=== PATIENT | female | born 1970 | race Caucasian/White ===

== ENCOUNTER 2021-05-02 13:02 | Inpatient (IN) | payer OTHER, SELFPAY ==
[2021-05-02] MEDS ORDERED: Dexamethasone 10 MG/ML VIAL ONE (13:35)
[2021-05-02 13:43] LABS: Hemoglobin 13.9 g/dL (12.0-15.5); Mean Corpuscular HGB CONC 33.5 g/dL (32.0-36.0); Mean Corpuscular Hemoglobin 29.2 pg (27.0-33.0); Mean Corpuscular Volume 87.2 fl (81.6-98.3); Mean Platelet Volume 11.6 fl (7.4-10.4); Platelet Count 173 10x3/uL (150-450); RBC Distribution Width 14.2 % (11.5-14.5); Red Blood Cell (RBC) Count 4.76 10x6/uL (3.90-5.03)
[2021-05-02 13:59] LABS: ALT (SGPT) 71 U/L (8-55); AST (SGOT) 180 U/L (5-34); Albumin 3.3 g/dL (3.5-5.0); Alkaline Phosphatase 77 U/L (40-110); Anion Gap 27 mmol/L (10-20); BUN (Urea Nitrogen) 59 mg/dL (7.0-18.7); Bilirubin, Total 0.5 mg/dL (0.2-1.2); Calc. Creatinine Clearance 0 mL/min (70-130); Calcium 8.2 mg/dL (7.8-10.44); Carbon Dioxide 19 mmol/L (22-29); Chloride 89 mmol/L (98-107); Globulin 3.8 g/dL (2.4-3.5); Glucose 149 mg/dL (70-105); Potassium 3.7 mmol/L (3.5-5.1); Protein, Total 7.1 g/dL (6.0-8.3); Sodium 131 mmol/L (136-145)
[2021-05-02 14:01] LABS: MDiff Complete? YES
[2021-05-02 14:07] LABS: Monocytes 5 % (0-10); Neutrophil 85 % (42-75); Reactive Lymphocytes 3 % (0-10)
[2021-05-02 14:08] LABS: Lymphocytes 7 % (21-51)
[2021-05-02 14:09] LABS: Platelet Morphology Comment Appears Adequate
[2021-05-02 14:12] LABS: RBC Morphology Normal
[2021-05-02 14:25] LABS: Actual Bicarbonate (HCO3a) 20.4 mEq/L (22-28); Base Excess (BEa) -3.4 mEq/L (-2.0 to +3.0); CO2 Tension 33.2 mmHg (35.0-45.0); Calcium, Ionized (arterial) 0.99 mmol/L (1.12-1.30); Carboxyhemoglobin (COHb) 0.7 gm% (0.0-3.0); O2 Tension (PaO2), arterial 113.8 mmHg (80.0-100.0); Potassium - ABG Lab 3.4 mmol/L (3.70-5.30); Puncture Site RRA; pH, Arterial 7.41 (7.35-7.45)
[2021-05-02 14:54] LABS: CKMB 9.9 ng/mL (0-6.6)
[2021-05-02] MEDS ORDERED: Acetaminophen 325 MG TAB PO PRN (14:54)
[2021-05-02] MEDS ORDERED: Guaifenesin DM 100-10/5 ML UDCUP PO PRN (14:54)
[2021-05-02] MEDS ORDERED: Ondansetron PF 4 MG/2 ML Vial IVP PRN (14:54)
[2021-05-02 16:46] LABS: Lactic Acid 1.5 mmol/L (0.5-2.2)
[2021-05-02] MEDS ORDERED: Ventilator Sedation Protocol 1 EACH FS PRN (16:52)
[2021-05-02] MEDS ORDERED: Dexamethasone 20 MG/5 ML VIAL SLOW IVP SCH (17:00)
[2021-05-02] MEDS ORDERED: Propofol BOLUS 1,000 MG/100 ML VIAL IV PRN (17:00)
[2021-05-02] MEDS ORDERED: Propofol 1,000 MG/100 ML VIAL IV PRN (17:00)
[2021-05-02] MEDS ORDERED: Fentanyl BOLUS 250 ML IVPB PRN (17:00)
[2021-05-02] MEDS ORDERED: Sodium Bicarbonate 75 MEQ in Sodium Chloride 0.45% 1,000 ML IV SCH (17:45)
[2021-05-02] MEDS ORDERED: guaiFENesin/Codeine Phosphate 100 mg/10 mg 5 ml UD Cup PO PRN (17:54)
[2021-05-02 17:55] LABS: Actual Bicarbonate (HCO3a) 20.3 mEq/L (22-28); Base Excess (BEa) -4.2 mEq/L (-2.0 to +3.0); CO2 Tension 35.9 mmHg (35.0-45.0); Calcium, Ionized (arterial) 0.99 mmol/L (1.12-1.30); Carboxyhemoglobin (COHb) 0.4 gm% (0.0-3.0); O2 Tension (PaO2), arterial 87.2 mmHg (80.0-100.0); Potassium - ABG Lab 3.4 mmol/L (3.70-5.30); Puncture Site RRA; pH, Arterial 7.37 (7.35-7.45)
[2021-05-02 17:59] LABS: ALV-art Gradient 580.925 mmHg (0-20)
[2021-05-02 18:37] LABS: Hemoglobin 13.3 g/dL (12.0-15.5); Platelet Count 144 10x3/uL (150-450)
[2021-05-02] MEDS: Sodium Bicarbonate 75 MEQ, Admixture Fee 1 EACH in Sodium Chloride 0.45% 1,000 ML IV SCH (18:49)
[2021-05-02] MEDS: Vecuronium Bromide 50 MG in Sodium Chloride 0.9% 250 ML 250 ML IV SCH ×2 (19:29→22:47)
[2021-05-02 19:54] LABS: Creatinine, Urine 266.05 mg/dL (47-110)
[2021-05-02] MEDS ORDERED: Sodium Bicarbonate 75 MEQ, Admixture Fee 1 EACH in Sodium Chloride 0.45% 1,000 ML IV SCH (20:15)
[2021-05-02 20:51] LABS: HBCM Index 0.15 S/CO (0-0.79); HBSAg Index 0.18 S/CO (0-0.99); Hep A IgM AB Non-Reactive (NonReactive); Hep A IgM S/CO 0.56 S/CO (0-0.79); Hep B Surf Ag Non-Reactive S/CO (NonReactive); Hep C IgG Ab Non-Reactive (NonReactive); Hep C Index 0.12 S/CO (0-0.79); Hepatitis B Core IgM Abs Non-Reactive (NonReactive)
[2021-05-02] MEDS ORDERED: Norepinephrine 8 MG/0.9% NS 250 ML ONE (21:37)
[2021-05-02] MEDS ORDERED: Norepinephrine 8 MG/0.9% NS 250 ML IVPB SCH (22:00)
[2021-05-02] MEDS: Cefepime 1 GM in Sodium Chloride 0.9% 100 ML IVPB SCH (22:45)
[2021-05-02] MEDS: Famotidine 20 MG TAB PO SCH (22:48)
[2021-05-02 23:33] LABS: Hemoglobin 12.7 g/dL (12.0-15.5); Mean Corpuscular HGB CONC 34.1 g/dL (32.0-36.0); Mean Corpuscular Hemoglobin 29.1 pg (27.0-33.0); Mean Corpuscular Volume 85.3 fl (81.6-98.3); Mean Platelet Volume 11.5 fl (7.4-10.4); Platelet Count 134 10x3/uL (150-450); RBC Distribution Width 14.2 % (11.5-14.5); Red Blood Cell (RBC) Count 4.36 10x6/uL (3.90-5.03); White Blood Cell (WBC) Count 6.9 10x3/uL (3.5-10.5)
[2021-05-02] MEDS: Heparin 25,000 units/D5W 500 ML IVPB SCH (23:47)
[2021-05-03] MEDS: Heparin 10,000 UNITS/ 10 ML VIAL SLOW IVP SCH ×2 (00:02→22:37)
[2021-05-03 01:04] LABS: Band 8 % (5-11); Lymphocytes 9 % (21-51); Monocytes 4 % (0-10); Myelocyte 2 % (0-0); Reactive Lymphocytes 2 % (0-10)
[2021-05-03 01:05] LABS: Anisocytosis SLIGHT = 6-15 cells (100X) (0-5/hpf); Microcytosis SLIGHT = 6-15 cells (100X) (0-5/hpf); Neutrophil 75 % (42-75)
[2021-05-03 01:06] LABS: Large Platelets MODERATE; Platelet Clumps SLIGHT; Platelet Morphology Comment Appears Adequate
[2021-05-03 01:07] LABS: MDiff Complete? YES
[2021-05-03 04:57] LABS: Hemoglobin 12.5 g/dL (12.0-15.5); Mean Corpuscular Hemoglobin 29.3 pg (27.0-33.0); Mean Corpuscular Volume 86.4 fl (81.6-98.3); Platelet Count 138 10x3/uL (150-450); RBC Distribution Width 14.1 % (11.5-14.5); Red Blood Cell (RBC) Count 4.26 10x6/uL (3.90-5.03); White Blood Cell (WBC) Count 7.5 10x3/uL (3.5-10.5)
[2021-05-03 05:01] LABS: Anion Gap 26 mmol/L (10-20); BUN (Urea Nitrogen) 72 mg/dL (7.0-18.7); Calc. Creatinine Clearance 19 mL/min (70-130); Calcium 7.6 mg/dL (7.8-10.44); Carbon Dioxide 18 mmol/L (22-29); Chloride 92 mmol/L (98-107); Glucose 167 mg/dL (70-105); Potassium 3.1 mmol/L (3.5-5.1); Sodium 133 mmol/L (136-145)
[2021-05-03 05:14] LABS: CK (CPK) 4441 U/L (29-168)
[2021-05-03] MEDS ORDERED: DOPamine 400 MG/D5W 250 ML 250 ML IVPB SCH (05:15)
[2021-05-03] MEDS ORDERED: Furosemide 100 MG/10 ML VIAL SLOW IVP SCH (05:15)
[2021-05-03] MEDS: Sodium Bicarbonate 75 MEQ, Admixture Fee 1 EACH in Sodium Chloride 0.45% 1,000 ML IV SCH (06:04)
[2021-05-03] MEDS: Lactated Ringer's 1,000 ML IV SCH ×4 (06:05→20:54)
[2021-05-03 06:32] LABS: ALV-art Gradient 363.375 mmHg (0-20); Base Excess (BEa) -3.9 mEq/L (-2.0 to +3.0); CO2 Tension 32.9 mmHg (35.0-45.0); Calcium, Ionized (arterial) 0.96 mmol/L (1.12-1.30); Carboxyhemoglobin (COHb) 0.3 gm% (0.0-3.0); Hemoglobin (Hb) 13.3 g/dL (12.0-16.0); O2 Tension (PaO2), arterial 308.5 mmHg (80.0-100.0); Potassium - ABG Lab 3.2 mmol/L (3.70-5.30); Puncture Site LRA
[2021-05-03 06:42] LABS: Magnesium 2.1 mg/dL (1.6-2.6); Phosphorus 7.4 mg/dL (2.3-4.7)
[2021-05-03 07:04] LABS: PTT Greater than 139.0 sec (22.0-33.0)
[2021-05-03 07:54] LABS: Band 15 % (5-11); Lymphocytes 4 % (21-51); Monocytes 5 % (0-10); Myelocyte 1 % (0-0)
[2021-05-03 07:55] LABS: Neutrophil 70 % (42-75); Reactive Lymphocytes 5 % (0-10)
[2021-05-03 07:56] LABS: Anisocytosis SLIGHT = 6-15 cells (100X) (0-5/hpf); Microcytosis SLIGHT = 6-15 cells (100X) (0-5/hpf)
[2021-05-03 07:57] LABS: Platelet Morphology Comment Appears Adequate
[2021-05-03 07:58] LABS: Burr Cells SLIGHT = 2-5 cells (100X) (0-1/hpf); Crenated RBC SLIGHT = 1-5 cells (100X) (None Seen); Giant Platelets SLIGHT; Large Platelets SLIGHT
[2021-05-03 07:59] LABS: Platelet Clumps SLIGHT
[2021-05-03 08:01] LABS: MDiff Complete? YES
[2021-05-03] MEDS: Zinc Sulfate 220 MG CAP PO SCH ×2 (08:43→13:04)
[2021-05-03] MEDS: Aspirin 81 mg Enteric Coated Tablet PO SCH ×2 (08:43→13:04)
[2021-05-03] MEDS: Cefepime 1 GM in Sodium Chloride 0.9% 100 ML IVPB SCH ×2 (08:43→20:55)
[2021-05-03] MEDS: Dexamethasone 20 MG/5 ML VIAL SLOW IVP SCH (08:43)
[2021-05-03] MEDS ORDERED: Enoxaparin Sodium 30 MG/0.3 ML SYRINGE SC SCH (09:00)
[2021-05-03] MEDS: fentaNYL Citrate-0.9 % NaCl/PF 100 ML IVPB SCH (09:10)
[2021-05-03 09:13] LABS: Actual Bicarbonate (HCO3a) 18.5 mEq/L (22-28); Base Excess (BEa) -5.5 mEq/L (-2.0 to +3.0); CO2 Tension 31.9 mmHg (35.0-45.0); Carboxyhemoglobin (COHb) 0.3 gm% (0.0-3.0); O2 Tension (PaO2), arterial 141.3 mmHg (80.0-100.0); Potassium - ABG Lab 3.3 mmol/L (3.70-5.30); Puncture Site RBA; pH, Arterial 7.38 (7.35-7.45)
[2021-05-03 09:18] LABS: ALV-art Gradient 246.625 mmHg (0-20)
[2021-05-03 10:19] LABS: Anion Gap 24 mmol/L (10-20); BUN (Urea Nitrogen) 76 mg/dL (7.0-18.7); Calc. Creatinine Clearance 19 mL/min (70-130); Calcium 7.4 mg/dL (7.8-10.44); Carbon Dioxide 18 mmol/L (22-29); Chloride 93 mmol/L (98-107); Glucose 127 mg/dL (70-105); Potassium 3.3 mmol/L (3.5-5.1); Sodium 132 mmol/L (136-145)
[2021-05-03 10:38] LABS: PTT Greater than 139.0 sec (22.0-33.0)
[2021-05-03] MEDS: Vecuronium Bromide 50 MG in Sodium Chloride 0.9% 250 ML 250 ML IV SCH (14:53)
[2021-05-03 16:37] LABS: Actual Bicarbonate (HCO3a) 19.7 mEq/L (22-28); Base Excess (BEa) -5.6 mEq/L (-2.0 to +3.0); CO2 Tension 37.9 mmHg (35.0-45.0); Calcium, Ionized (arterial) 0.95 mmol/L (1.12-1.30); Carboxyhemoglobin (COHb) 0.3 gm% (0.0-3.0); Hemoglobin (Hb) 12.8 g/dL (12.0-16.0); O2 Tension (PaO2), arterial 99.1 mmHg (80.0-100.0); Potassium - ABG Lab 3.8 mmol/L (3.70-5.30); Puncture Site Arterial Line; pH, Arterial 7.33 (7.35-7.45)
[2021-05-03 16:39] LABS: ALV-art Gradient 281.325 mmHg (0-20)
[2021-05-03] MEDS: Famotidine 20 MG TAB PO SCH (20:56)
[2021-05-03] MEDS: Heparin 25,000 units/D5W 500 ML IVPB SCH (20:58)
[2021-05-04] MEDS: Lactated Ringer's 1,000 ML IV SCH (02:12)
[2021-05-04 04:30] LABS: #Monocytes 0.8 10x3/uL (0.0-1.1); #Neutrophils 13.1 10x3/uL (1.5-8.4); %Basophils 0.3 % (0.0-2.0); %Lymphocytes 5.8 % (18.0-47.0); %Monocytes 5.2 % (0.0-10.0); %Neutrophils 84.6 % (40.0-75.0); Hemoglobin 11.6 g/dL (12.0-15.5); Mean Corpuscular HGB CONC 33.4 g/dL (32.0-36.0); Mean Corpuscular Hemoglobin 29.4 pg (27.0-33.0); Mean Corpuscular Volume 88.1 fl (81.6-98.3); Mean Platelet Volume 11.7 fl (7.4-10.4); Platelet Count 186 10x3/uL (150-450); RBC Distribution Width 14.6 % (11.5-14.5); Red Blood Cell (RBC) Count 3.94 10x6/uL (3.90-5.03); White Blood Cell (WBC) Count 15.4 10x3/uL (3.5-10.5)
[2021-05-04 05:01] LABS: ALT (SGPT) 248 U/L (8-55); AST (SGOT) 226 U/L (5-34); Albumin 2.6 g/dL (3.5-5.0); Alkaline Phosphatase 60 U/L (40-110); Anion Gap 25 mmol/L (10-20); BUN (Urea Nitrogen) 85 mg/dL (7.0-18.7); Bilirubin, Total 0.2 mg/dL (0.2-1.2); Calc. Creatinine Clearance 17 mL/min (70-130); Calcium 6.9 mg/dL (7.8-10.44); Carbon Dioxide 16 mmol/L (22-29); Chloride 96 mmol/L (98-107); Globulin 3.3 g/dL (2.4-3.5); Glucose 147 mg/dL (70-105); Phosphorus 9.6 mg/dL (2.3-4.7); Potassium 3.4 mmol/L (3.5-5.1); Protein, Total 5.9 g/dL (6.0-8.3); Sodium 134 mmol/L (136-145)
[2021-05-04] MEDS: Vecuronium Bromide 50 MG in Sodium Chloride 0.9% 250 ML 250 ML IV SCH ×2 (05:29→15:32)
[2021-05-04] MEDS ORDERED: Furosemide 100 MG/10 ML VIAL SLOW IVP SCH (06:30)
[2021-05-04 07:06] LABS: PTT Greater than 139.0 sec (22.0-33.0)
[2021-05-04 07:38] LABS: Base Excess (BEa) -9.3 mEq/L (-2.0 to +3.0); CO2 Tension 38.3 mmHg (35.0-45.0); Calcium, Ionized (arterial) 0.91 mmol/L (1.12-1.30); Carboxyhemoglobin (COHb) 0.3 gm% (0.0-3.0); Hemoglobin (Hb) 12.5 g/dL (12.0-16.0); O2 Tension (PaO2), arterial 167.4 mmHg (80.0-100.0); Potassium - ABG Lab 3.5 mmol/L (3.70-5.30); Puncture Site Arterial Line; pH, Arterial 7.27 (7.35-7.45)
[2021-05-04 07:42] LABS: ALV-art Gradient 212.525 mmHg (0-20)
[2021-05-04] MEDS: fentaNYL Citrate-0.9 % NaCl/PF 100 ML IVPB SCH (08:29)
[2021-05-04] MEDS: Dexamethasone 20 MG/5 ML VIAL SLOW IVP SCH (08:32)
[2021-05-04] MEDS: Zinc Sulfate 220 MG CAP PO SCH (08:33)
[2021-05-04] MEDS: Aspirin 81 mg Enteric Coated Tablet PO SCH (08:33)
[2021-05-04] MEDS: Cefepime 1 GM in Sodium Chloride 0.9% 100 ML IVPB SCH ×2 (08:33→21:22)
[2021-05-04] MEDS: Dextrose 5%-Lactated Ringers 1,000 ML IV SCH ×2 (10:53→23:49)
[2021-05-04 11:25] LABS: PTT 88.1 sec (22.0-33.0)
[2021-05-04] MEDS: Heparin 25,000 units/D5W 500 ML IVPB SCH (13:41)
[2021-05-04 17:30] LABS: Hemoglobin 10.1 g/dL (12.0-15.5); Platelet Count 186 10x3/uL (150-450)
[2021-05-04 17:58] LABS: PTT 88.7 sec (22.0-33.0)
[2021-05-04 18:22] LABS: HBSAB Concentration Less than 8.00 mIU/mL; Hep B Surf AB Non-Reactive (NonReactive)
[2021-05-04] MEDS: Famotidine 20 MG TAB PO SCH (21:23)
[2021-05-04 21:48] LABS: Actual Bicarbonate (HCO3a) 19.2 mEq/L (22-28); Base Excess (BEa) -6.6 mEq/L (-2.0 to +3.0); CO2 Tension 39.2 mmHg (35.0-45.0); Calcium, Ionized (arterial) 0.98 mmol/L (1.12-1.30); Carboxyhemoglobin (COHb) 0.3 gm% (0.0-3.0); Hemoglobin (Hb) 11.1 g/dL (12.0-16.0); O2 Tension (PaO2), arterial 64.7 mmHg (80.0-100.0); Potassium - ABG Lab 3.3 mmol/L (3.70-5.30); Puncture Site LRA; pH, Arterial 7.31 (7.35-7.45)
[2021-05-05 01:53] LABS: PTT 85.2 sec (22.0-33.0)
[2021-05-05 03:06] LABS: Actual Bicarbonate (HCO3a) 19.6 mEq/L (22-28); CO2 Tension 39.2 mmHg (35.0-45.0); O2 Tension (PaO2), arterial 80.4 mmHg (80.0-100.0); pH, Arterial 7.32 (7.35-7.45)
[2021-05-05 03:07] LABS: Calcium, Ionized (arterial) 0.97 mmol/L (1.12-1.30); Carboxyhemoglobin (COHb) 0.3 gm% (0.0-3.0); Hemoglobin (Hb) 10.9 g/dL (12.0-16.0); Potassium - ABG Lab 3.6 mmol/L (3.70-5.30); Puncture Site LRA
[2021-05-05 03:36] LABS: #Basophils 0.1 10x3/uL (0.0-0.2); #Monocytes 0.8 10x3/uL (0.0-1.1); %Basophils 0.3 % (0.0-2.0); %Lymphocytes 4.1 % (18.0-47.0); %Monocytes 4.6 % (0.0-10.0); %Neutrophils 86.6 % (40.0-75.0); Hemoglobin 10.2 g/dL (12.0-15.5); Mean Corpuscular Hemoglobin 29.4 pg (27.0-33.0); Mean Corpuscular Volume 86.5 fl (81.6-98.3); Mean Platelet Volume 11.6 fl (7.4-10.4); Platelet Count 200 10x3/uL (150-450); Red Blood Cell (RBC) Count 3.47 10x6/uL (3.90-5.03); White Blood Cell (WBC) Count 17.3 10x3/uL (3.5-10.5)
[2021-05-05] MEDS: Dextrose 5%-Lactated Ringers 1,000 ML IV SCH (03:50)
[2021-05-05] MEDS: fentaNYL Citrate-0.9 % NaCl/PF 100 ML IVPB SCH ×2 (03:57→21:29)
[2021-05-05 04:11] LABS: ALT (SGPT) 206 U/L (8-55); AST (SGOT) 134 U/L (5-34); Albumin 2.4 g/dL (3.5-5.0); Alkaline Phosphatase 59 U/L (40-110); Anion Gap 26 mmol/L (10-20); BUN (Urea Nitrogen) 70 mg/dL (7.0-18.7); Bilirubin, Total 0.2 mg/dL (0.2-1.2); CK (CPK) 740 U/L (29-168); Calc. Creatinine Clearance 18 mL/min (70-130); Calcium 7.2 mg/dL (7.8-10.44); Carbon Dioxide 15 mmol/L (22-29); Chloride 98 mmol/L (98-107); Globulin 3.2 g/dL (2.4-3.5); Glucose 142 mg/dL (70-105); Phosphorus 7.4 mg/dL (2.3-4.7); Potassium 3.7 mmol/L (3.5-5.1); Protein, Total 5.6 g/dL (6.0-8.3); Sodium 135 mmol/L (136-145)
[2021-05-05 04:51] LABS: Magnesium 1.9 mg/dL (1.6-2.6)
[2021-05-05] MEDS: Heparin 25,000 units/D5W 500 ML IVPB SCH (04:52)
[2021-05-05] MEDS: Dexamethasone 20 MG/5 ML VIAL SLOW IVP SCH (08:19)
[2021-05-05] MEDS: Cefepime 1 GM in Sodium Chloride 0.9% 100 ML IVPB SCH ×2 (08:19→21:28)
[2021-05-05] MEDS: Zinc Sulfate 220 MG CAP PO SCH (08:20)
[2021-05-05] MEDS: Aspirin 81 mg Enteric Coated Tablet PO SCH (08:20)
[2021-05-05] MEDS: Ergocalciferol 1.25 MG(50,000 UNITS) CAP PO SCH (08:21)
[2021-05-05 09:04] LABS: Actual Bicarbonate (HCO3a) 19.2 mEq/L (22-28); Base Excess (BEa) -6.2 mEq/L (-2.0 to +3.0); CO2 Tension 37.8 mmHg (35.0-45.0); Calcium, Ionized (arterial) 0.97 mmol/L (1.12-1.30); Carboxyhemoglobin (COHb) 0.3 gm% (0.0-3.0); Hemoglobin (Hb) 10.8 g/dL (12.0-16.0); O2 Tension (PaO2), arterial 79.7 mmHg (80.0-100.0); Potassium - ABG Lab 3.7 mmol/L (3.70-5.30); Puncture Site LRA; pH, Arterial 7.32 (7.35-7.45)
[2021-05-05 14:53] LABS: Hemoglobin 9.5 g/dL (12.0-15.5); Mean Corpuscular Hemoglobin 29.1 pg (27.0-33.0); Mean Corpuscular Volume 88.1 fl (81.6-98.3); Mean Platelet Volume 11.5 fl (7.4-10.4); Platelet Count 210 10x3/uL (150-450); RBC Distribution Width 15.4 % (11.5-14.5); Red Blood Cell (RBC) Count 3.27 10x6/uL (3.90-5.03); White Blood Cell (WBC) Count 16.7 10x3/uL (3.5-10.5)
[2021-05-05 15:44] LABS: Band 1 % (5-11); Lymphocytes 3 % (21-51); MDiff Complete? YES; Metamyelocyte 1 % (0-0); Monocytes 1 % (0-10); Myelocyte 2 % (0-0); Neutrophil 92 % (42-75)
[2021-05-05 15:48] LABS: Platelet Morphology Comment Appears Adequate; Polychromasia SLIGHT = 2-3 cells (100X) (0-2/hpf)
[2021-05-05] MEDS ORDERED: Vancomycin HCl 1.5 GM in Sodium Chloride 0.9% 250 ML 300 ML IVPB SCH (16:15)
[2021-05-05] MEDS ORDERED: Vancomycin HCl 750 MG in Sodium Chloride 0.9% 250 ML 250 ML IVPB SCH (16:15)
[2021-05-05] MEDS ORDERED: Vancomycin HCl 1.25 GM in Sodium Chloride 0.9% 250 ML 250 ML IVPB SCH (16:15)
[2021-05-05] MEDS ORDERED: Vancomycin 1 GM in Premix Bag 1 BAG IVPB SCH (16:15)
[2021-05-05] MEDS ORDERED: HOLD VANCOMYCIN FOR LEVEL >20 FS SCH (16:15)
[2021-05-05 16:46] LABS: Actual Bicarbonate (HCO3a) 24.1 mEq/L (22-28); Base Excess (BEa) -1.5 mEq/L (-2.0 to +3.0); CO2 Tension 43.8 mmHg (35.0-45.0); Calcium, Ionized (arterial) 1.02 mmol/L (1.12-1.30); Carboxyhemoglobin (COHb) 0.2 gm% (0.0-3.0); Hemoglobin (Hb) 11.4 g/dL (12.0-16.0); O2 Tension (PaO2), arterial 51.9 mmHg (80.0-100.0); Potassium - ABG Lab 3.8 mmol/L (3.70-5.30); Puncture Site RRA; pH, Arterial 7.36 (7.35-7.45)
[2021-05-05] MEDS ORDERED: Vancomycin HCl 1.5 GM, Admixture Fee 1 EACH in Sodium Chloride 0.9% 500 ML IVPB SCH (17:00)
[2021-05-05] MEDS ORDERED: VANCOMYCIN 1.75 GM in Sodium Chloride 0.9% 500 ML IVPB SCH (17:00)
[2021-05-05 17:05] LABS: Hemoglobin 10.5 g/dL (12.0-15.5); Mean Corpuscular HGB CONC 33.8 g/dL (32.0-36.0); Mean Corpuscular Hemoglobin 29.2 pg (27.0-33.0); Mean Corpuscular Volume 86.4 fl (81.6-98.3); Mean Platelet Volume 11.1 fl (7.4-10.4); Platelet Count 350 10x3/uL (150-450); RBC Distribution Width 15.3 % (11.5-14.5); White Blood Cell (WBC) Count 29.2 10x3/uL (3.5-10.5)
[2021-05-05 17:26] LABS: INR-International Normal Ratio 1.1; Prothrombin Time 11.6 sec (9.5-12.1)
[2021-05-05 17:29] LABS: PTT 74.5 sec (22.0-33.0)
[2021-05-05 17:33] LABS: Hemoglobin 10.5 g/dL (12.0-15.5); Mean Corpuscular HGB CONC 33.8 g/dL (32.0-36.0); Mean Corpuscular Hemoglobin 29.4 pg (27.0-33.0); Mean Corpuscular Volume 87.1 fl (81.6-98.3); Mean Platelet Volume 11.1 fl (7.4-10.4); Platelet Count 348 10x3/uL (150-450); RBC Distribution Width 15.3 % (11.5-14.5); Red Blood Cell (RBC) Count 3.57 10x6/uL (3.90-5.03); White Blood Cell (WBC) Count 28.6 10x3/uL (3.5-10.5)
[2021-05-05] MEDS: Famotidine 20 MG TAB PO SCH (21:29)
[2021-05-06 02:36] LABS: Hemoglobin 8.4 g/dL (12.0-15.5); Platelet Count 205 10x3/uL (150-450)
[2021-05-06 05:12] LABS: Vancomycin, Random 21.9 ug/mL (See Comment)
[2021-05-06 05:15] LABS: Hemoglobin 8.1 g/dL (12.0-15.5); Mean Corpuscular HGB CONC 33.3 g/dL (32.0-36.0); Mean Corpuscular Hemoglobin 29.1 pg (27.0-33.0); Mean Corpuscular Volume 87.4 fl (81.6-98.3); Platelet Count 215 10x3/uL (150-450); RBC Distribution Width 15.1 % (11.5-14.5); Red Blood Cell (RBC) Count 2.78 10x6/uL (3.90-5.03); White Blood Cell (WBC) Count 17.1 10x3/uL (3.5-10.5)
[2021-05-06 05:21] LABS: ALT (SGPT) 134 U/L (8-55); AST (SGOT) 54 U/L (5-34); Albumin 2.3 g/dL (3.5-5.0); Alkaline Phosphatase 50 U/L (40-110); Anion Gap 26 mmol/L (10-20); BUN (Urea Nitrogen) 72 mg/dL (7.0-18.7); Bilirubin, Total 0.3 mg/dL (0.2-1.2); CK (CPK) 294 U/L (29-168); CRP (Inflammatory) 1.33 mg/dL (= or < 0.5); Calc. Creatinine Clearance 19 mL/min (70-130); Calcium 7.4 mg/dL (7.8-10.44); Carbon Dioxide 15 mmol/L (22-29); Chloride 99 mmol/L (98-107); Globulin 2.3 g/dL (2.4-3.5); Glucose 120 mg/dL (70-105); Potassium 3.8 mmol/L (3.5-5.1); Protein, Total 4.6 g/dL (6.0-8.3); Sodium 136 mmol/L (136-145)
[2021-05-06] MEDS: Dextrose 5%-Lactated Ringers 1,000 ML IV SCH ×2 (06:30→18:29)
[2021-05-06 07:11] LABS: Band 2 % (5-11); Lymphocytes 5 % (21-51); Metamyelocyte 3 % (0-0); Monocytes 1 % (0-10); Myelocyte 2 % (0-0); Reactive Lymphocytes 1 % (0-10)
[2021-05-06 07:12] LABS: Neutrophil 86 % (42-75); Nucleated RBC 1 % (0)
[2021-05-06 07:14] LABS: Anisocytosis SLIGHT = 6-15 cells (100X) (0-5/hpf); Large Platelets SLIGHT; Microcytosis SLIGHT = 6-15 cells (100X) (0-5/hpf); Platelet Morphology Comment Appears Adequate
[2021-05-06 07:15] LABS: MDiff Complete? YES
[2021-05-06 07:40] LABS: Actual Bicarbonate (HCO3a) 23.2 mEq/L (22-28); Base Excess (BEa) -1.8 mEq/L (-2.0 to +3.0); CO2 Tension 40.4 mmHg (35.0-45.0); Calcium, Ionized (arterial) 0.99 mmol/L (1.12-1.30); Carboxyhemoglobin (COHb) 0.2 gm% (0.0-3.0); Hemoglobin (Hb) 8.8 g/dL (12.0-16.0); O2 Tension (PaO2), arterial 77.8 mmHg (80.0-100.0); Potassium - ABG Lab 3.9 mmol/L (3.70-5.30); Puncture Site LRA; pH, Arterial 7.38 (7.35-7.45)
[2021-05-06] MEDS: Dexamethasone 20 MG/5 ML VIAL SLOW IVP SCH (08:40)
[2021-05-06] MEDS ORDERED: Sodium Chloride 0.9% 100 ML ONE (08:40)
[2021-05-06] MEDS: Zinc Sulfate 220 MG CAP PO SCH (08:41)
[2021-05-06 10:32] LABS: Hemoglobin 8.5 g/dL (12.0-15.5); Platelet Count 251 10x3/uL (150-450)
[2021-05-06 10:45] LABS: Iron 66 ug/dL (50-170); Iron Binding Capacity, Total 161 mcg/dL (265-497)
[2021-05-06] MEDS ORDERED: Pantoprazole 40 MG VIAL IVP SCH (11:00)
[2021-05-06] MEDS: CEFAZOLIN 1 GM in Sodium Chloride 0.9% 100 ML IVPB SCH ×2 (12:51→21:03)
[2021-05-06] MEDS: fentaNYL Citrate-0.9 % NaCl/PF 100 ML IVPB SCH (12:53)
[2021-05-06] MEDS ORDERED: CEFAZOLIN 1 GM VIAL SLOW IVP SCH (14:00)
[2021-05-07 04:43] LABS: Hemoglobin 7.6 g/dL (12.0-15.5); Mean Corpuscular HGB CONC 33.6 g/dL (32.0-36.0); Mean Corpuscular Hemoglobin 29.7 pg (27.0-33.0); Mean Corpuscular Volume 88.3 fl (81.6-98.3); Mean Platelet Volume 11.1 fl (7.4-10.4); Platelet Count 199 10x3/uL (150-450); RBC Distribution Width 15.4 % (11.5-14.5); Red Blood Cell (RBC) Count 2.56 10x6/uL (3.90-5.03); White Blood Cell (WBC) Count 20.3 10x3/uL (3.5-10.5)
[2021-05-07] MEDS: fentaNYL Citrate-0.9 % NaCl/PF 100 ML IVPB SCH ×2 (04:47→23:05)
[2021-05-07 04:59] LABS: Vancomycin, Random 14.3 ug/mL (See Comment)
[2021-05-07 05:05] LABS: ALT (SGPT) 107 U/L (8-55); AST (SGOT) 53 U/L (5-34); Albumin 2.5 g/dL (3.5-5.0); Alkaline Phosphatase 45 U/L (40-110); Anion Gap 20 mmol/L (10-20); BUN (Urea Nitrogen) 72 mg/dL (7.0-18.7); Bilirubin, Total 0.3 mg/dL (0.2-1.2); CK (CPK) 176 U/L (29-168); CRP (Inflammatory) 0.83 mg/dL (= or < 0.5); Calc. Creatinine Clearance 22 mL/min (70-130); Calcium 8.2 mg/dL (7.8-10.44); Carbon Dioxide 24 mmol/L (22-29); Chloride 97 mmol/L (98-107); Globulin 2.4 g/dL (2.4-3.5); Glucose 143 mg/dL (70-105); Potassium 3.8 mmol/L (3.5-5.1); Protein, Total 4.9 g/dL (6.0-8.3); Sodium 137 mmol/L (136-145)
[2021-05-07 05:57] LABS: Band 9 % (5-11); Lymphocytes 3 % (21-51); Monocytes 2 % (0-10); Myelocyte 6 % (0-0); Nucleated RBC 2 % (0); Reactive Lymphocytes 2 % (0-10)
[2021-05-07 05:58] LABS: Metamyelocyte 2 % (0-0); Neutrophil 76 % (42-75)
[2021-05-07 06:00] LABS: Anisocytosis MODERATE=16-30 cells (100X) (0-5/hpf); Hypochromia SLIGHT = 6-15 cells (100X) (0-5/hpf); Macrocytosis SLIGHT = 6-15 cells (100X) (0-5/hpf); Microcytosis SLIGHT = 6-15 cells (100X) (0-5/hpf)
[2021-05-07 06:01] LABS: Platelet Clumps SLIGHT; Polychromasia SLIGHT = 2-3 cells (100X) (0-2/hpf)
[2021-05-07 06:02] LABS: Large Platelets SLIGHT; MDiff Complete? YES; Platelet Morphology Comment Appears Adequate
[2021-05-07 08:03] LABS: Actual Bicarbonate (HCO3a) 26.4 mEq/L (22-28); Base Excess (BEa) 1.7 mEq/L (-2.0 to +3.0); CO2 Tension 41.6 mmHg (35.0-45.0); Calcium, Ionized (arterial) 1.06 mmol/L (1.12-1.30); Carboxyhemoglobin (COHb) 0.3 gm% (0.0-3.0); Hemoglobin (Hb) 8.2 g/dL (12.0-16.0); O2 Tension (PaO2), arterial 59.9 mmHg (80.0-100.0); Potassium - ABG Lab 3.7 mmol/L (3.70-5.30); Puncture Site LRA; pH, Arterial 7.42 (7.35-7.45)
[2021-05-07 08:28] LABS: Phosphorus 6.3 mg/dL (2.3-4.7)
[2021-05-07] MEDS ORDERED: Pantoprazole 40 MG VIAL IVP SCH (09:00)
[2021-05-07] MEDS: Pantoprazole 40 MG VIAL IVP SCH ×2 (09:06→20:55)
[2021-05-07] MEDS: Dexamethasone 20 MG/5 ML VIAL SLOW IVP SCH (09:07)
[2021-05-07] MEDS: Polyethylene Glycol 3350 17 GM Packet PER TUBE SCH (09:07)
[2021-05-07] MEDS: Docusate Sodium 100 MG/10 ML UDCUP PO SCH (09:07)
[2021-05-07] MEDS: Zinc Sulfate 220 MG CAP PO SCH (09:07)
[2021-05-07] MEDS: CEFAZOLIN 1 GM in Sodium Chloride 0.9% 100 ML IVPB SCH ×3 (09:13→21:00)
[2021-05-07] MEDS: Sevelamer Carbonate 800 MG TAB PO SCH ×2 (13:48→21:01)
[2021-05-07 15:34] LABS: Hemoglobin 7.5 g/dL (12.0-15.5); Platelet Count 221 10x3/uL (150-450)
[2021-05-07] MEDS: Dextrose 5%-Lactated Ringers 1,000 ML IV SCH (20:00)
[2021-05-08] MEDS: Dexmedetomidine In 0.9 % NaCl 100 ML IVPB SCH ×2 (00:44→13:49)
[2021-05-08 04:45] LABS: ALT (SGPT) 43 U/L (8-55); AST (SGOT) 44 U/L (5-34); Albumin 2.6 g/dL (3.5-5.0); Alkaline Phosphatase 46 U/L (40-110); Anion Gap 22 mmol/L (10-20); BUN (Urea Nitrogen) 115 mg/dL (7.0-18.7); Bilirubin, Total 0.3 mg/dL (0.2-1.2); CK (CPK) 103 U/L (29-168); CRP (Inflammatory) 0.52 mg/dL (= or < 0.5); Calc. Creatinine Clearance 18 mL/min (70-130); Calcium 8.5 mg/dL (7.8-10.44); Carbon Dioxide 22 mmol/L (22-29); Chloride 97 mmol/L (98-107); Globulin 2.7 g/dL (2.4-3.5); Glucose 143 mg/dL (70-105); Potassium 4.1 mmol/L (3.5-5.1); Protein, Total 5.3 g/dL (6.0-8.3); Sodium 137 mmol/L (136-145)
[2021-05-08 05:01] LABS: Hemoglobin 7.6 g/dL (12.0-15.5); Mean Corpuscular HGB CONC 33.6 g/dL (32.0-36.0); Mean Corpuscular Hemoglobin 29.8 pg (27.0-33.0); Mean Corpuscular Volume 88.6 fl (81.6-98.3); Platelet Count 241 10x3/uL (150-450); RBC Distribution Width 15.2 % (11.5-14.5); Red Blood Cell (RBC) Count 2.55 10x6/uL (3.90-5.03); White Blood Cell (WBC) Count 25.3 10x3/uL (3.5-10.5)
[2021-05-08] MEDS: Sevelamer Carbonate 800 MG TAB PO SCH ×3 (05:28→20:59)
[2021-05-08] MEDS: CEFAZOLIN 1 GM in Sodium Chloride 0.9% 100 ML IVPB SCH (05:28)
[2021-05-08 06:55] LABS: Band 8 % (5-11); Lymphocytes 5 % (21-51); Metamyelocyte 3 % (0-0); Monocytes 4 % (0-10); Myelocyte 10 % (0-0)
[2021-05-08 06:56] LABS: Neutrophil 70 % (42-75); Nucleated RBC 3 % (0)
[2021-05-08 06:57] LABS: Anisocytosis SLIGHT = 6-15 cells (100X) (0-5/hpf); Macrocytosis SLIGHT = 6-15 cells (100X) (0-5/hpf); Microcytosis SLIGHT = 6-15 cells (100X) (0-5/hpf); Platelet Clumps SLIGHT; Polychromasia SLIGHT = 2-3 cells (100X) (0-2/hpf)
[2021-05-08 06:58] LABS: Large Platelets SLIGHT; MDiff Complete? YES; Platelet Morphology Comment Appears Adequate
[2021-05-08 08:13] LABS: Actual Bicarbonate (HCO3a) 23.5 mEq/L (22-28); CO2 Tension 38.2 mmHg (35.0-45.0); Calcium, Ionized (arterial) 1.06 mmol/L (1.12-1.30); Carboxyhemoglobin (COHb) 0.3 gm% (0.0-3.0); Hemoglobin (Hb) 8.2 g/dL (12.0-16.0); O2 Tension (PaO2), arterial 69.5 mmHg (80.0-100.0); Potassium - ABG Lab 4.1 mmol/L (3.70-5.30); Puncture Site LRA; pH, Arterial 7.41 (7.35-7.45)
[2021-05-08] MEDS: Dexamethasone 20 MG/5 ML VIAL SLOW IVP SCH (08:18)
[2021-05-08] MEDS: Docusate Sodium 100 MG/10 ML UDCUP PO SCH (08:18)
[2021-05-08] MEDS: Zinc Sulfate 220 MG CAP PO SCH (08:18)
[2021-05-08] MEDS: Polyethylene Glycol 3350 17 GM Packet PER TUBE SCH (08:18)
[2021-05-08] MEDS: Pantoprazole 40 MG VIAL IVP SCH ×2 (08:18→20:34)
[2021-05-08] MEDS ORDERED: Heparin 10,000 UNITS/ 10 ML VIAL FS SCH (09:45)
[2021-05-08] MEDS: Heparin 10,000 UNITS/ 10 ML VIAL SLOW IVP SCH (09:50)
[2021-05-08] MEDS: EPOETIN ALFA-EPBX (ESRD) 3,000 UNIT/ML VIAL SC SCH (10:23)
[2021-05-08] MEDS ORDERED: Bisacodyl 10 MG SUPP PR SCH (11:30)
[2021-05-08] MEDS ORDERED: Vancomycin HCl 1.25 GM in Sodium Chloride 0.9% 250 ML 250 ML IVPB SCH (13:30)
[2021-05-08] MEDS ORDERED: HOLD VANCOMYCIN FOR LEVEL >20 FS SCH (13:30)
[2021-05-08] MEDS ORDERED: Vancomycin HCl 750 MG in Sodium Chloride 0.9% 250 ML 250 ML IVPB SCH (13:30)
[2021-05-08] MEDS ORDERED: Vancomycin 1 GM in Premix Bag 1 BAG IVPB SCH ×2 (13:30→21:00)
[2021-05-08] MEDS ORDERED: Vancomycin HCl 1.5 GM in Sodium Chloride 0.9% 250 ML 300 ML IVPB SCH (13:30)
[2021-05-08] MEDS ORDERED: Vancomycin HCl 1 GM in Sodium Chloride 0.9% 250 ML 250 ML IVPB SCH (13:30)
[2021-05-08] MEDS ORDERED: Piperacillin/Tazobactam 3.375 GM in Sodium Chloride 0.9% 100 ML IVPB SCH (14:00)
[2021-05-08] MEDS ORDERED: Piperacillin/Tazobactam 2.25 GM in Sodium Chloride 0.9% 100 ML IVPB SCH (14:00)
[2021-05-08] MEDS: fentaNYL Citrate-0.9 % NaCl/PF 100 ML IVPB SCH (15:15)
[2021-05-08] MEDS: Piperacillin/Tazobactam 3.375 GM in Sodium Chloride 0.9% 100 ML IVPB SCH (18:08)
[2021-05-08 18:20] LABS: Hemoglobin 7.7 g/dL (12.0-15.5); Platelet Count 259 10x3/uL (150-450)
[2021-05-08] MEDS: Heparin 5,000 UNITS/ML VIAL SC SCH (20:34)
[2021-05-09 03:17] LABS: Hemoglobin 7.7 g/dL (12.0-15.5); Mean Corpuscular HGB CONC 33.6 g/dL (32.0-36.0); Mean Corpuscular Hemoglobin 29.8 pg (27.0-33.0); Mean Corpuscular Volume 88.8 fl (81.6-98.3); Mean Platelet Volume 10.9 fl (7.4-10.4); Platelet Count 266 10x3/uL (150-450); RBC Distribution Width 15.3 % (11.5-14.5); Red Blood Cell (RBC) Count 2.58 10x6/uL (3.90-5.03); White Blood Cell (WBC) Count 25.3 10x3/uL (3.5-10.5)
[2021-05-09 03:25] LABS: ALT (SGPT) 13 U/L (8-55); AST (SGOT) 42 U/L (5-34); Albumin 2.6 g/dL (3.5-5.0); Alkaline Phosphatase 45 U/L (40-110); Anion Gap 20 mmol/L (10-20); BUN (Urea Nitrogen) 94 mg/dL (7.0-18.7); Bilirubin, Total 0.4 mg/dL (0.2-1.2); CK (CPK) 112 U/L (29-168); CRP (Inflammatory) Less than 0.50 mg/dL (= or < 0.5); Calc. Creatinine Clearance 25 mL/min (70-130); Calcium 8.5 mg/dL (7.8-10.44); Carbon Dioxide 27 mmol/L (22-29); Chloride 95 mmol/L (98-107); Globulin 2.7 g/dL (2.4-3.5); Glucose 122 mg/dL (70-105); Potassium 4.1 mmol/L (3.5-5.1); Protein, Total 5.3 g/dL (6.0-8.3); Sodium 138 mmol/L (136-145)
[2021-05-09 03:42] LABS: Vancomycin, Random 22.3 ug/mL (See Comment)
[2021-05-09 04:43] LABS: MDiff Complete? YES
[2021-05-09 04:46] LABS: Band 4 % (5-11); Lymphocytes 11 % (21-51); Monocytes 22 % (0-10); Neutrophil 63 % (42-75); Nucleated RBC 2 % (0)
[2021-05-09 04:47] LABS: Platelet Morphology Comment Appears Adequate
[2021-05-09 04:48] LABS: Hypochromia MODERATE=16-30 cells (100X) (0-5/hpf)
[2021-05-09] MEDS: Sevelamer Carbonate 800 MG TAB PO SCH ×3 (05:15→21:28)
[2021-05-09] MEDS: Piperacillin/Tazobactam 3.375 GM in Sodium Chloride 0.9% 100 ML IVPB SCH ×2 (05:15→16:59)
[2021-05-09] MEDS: Dexmedetomidine In 0.9 % NaCl 100 ML IVPB SCH ×3 (05:22→16:58)
[2021-05-09 08:04] LABS: Actual Bicarbonate (HCO3a) 29.1 mEq/L (22-28); Base Excess (BEa) 4.5 mEq/L (-2.0 to +3.0); CO2 Tension 43.9 mmHg (35.0-45.0); Calcium, Ionized (arterial) 1.05 mmol/L (1.12-1.30); Hemoglobin (Hb) 8.5 g/dL (12.0-16.0); O2 Tension (PaO2), arterial 71.5 mmHg (80.0-100.0); Potassium - ABG Lab 4.1 mmol/L (3.70-5.30); Puncture Site LRA; pH, Arterial 7.44 (7.35-7.45)
[2021-05-09 08:10] LABS: ALV-art Gradient 158.825 mmHg (0-20)
[2021-05-09] MEDS: Dexamethasone 20 MG/5 ML VIAL SLOW IVP SCH (08:30)
[2021-05-09] MEDS: Docusate Sodium 100 MG/10 ML UDCUP PO SCH (08:30)
[2021-05-09] MEDS: Zinc Sulfate 220 MG CAP PO SCH (08:30)
[2021-05-09] MEDS: Polyethylene Glycol 3350 17 GM Packet PER TUBE SCH (08:30)
[2021-05-09] MEDS: Pantoprazole 40 MG VIAL IVP SCH ×2 (08:30→21:28)
[2021-05-09] MEDS: Heparin 5,000 UNITS/ML VIAL SC SCH ×3 (08:30→21:28)
[2021-05-09] MEDS: fentaNYL Citrate-0.9 % NaCl/PF 100 ML IVPB SCH ×2 (10:58→16:58)
[2021-05-10 04:30] LABS: Hemoglobin 7.4 g/dL (12.0-15.5); Mean Corpuscular HGB CONC 32.5 g/dL (32.0-36.0); Mean Corpuscular Hemoglobin 29.8 pg (27.0-33.0); Mean Corpuscular Volume 91.9 fl (81.6-98.3); Mean Platelet Volume 10.8 fl (7.4-10.4); Platelet Count 242 10x3/uL (150-450); RBC Distribution Width 15.5 % (11.5-14.5); Red Blood Cell (RBC) Count 2.48 10x6/uL (3.90-5.03); White Blood Cell (WBC) Count 22.5 10x3/uL (3.5-10.5)
[2021-05-10 04:38] LABS: Vancomycin, Random 15.6 ug/mL (See Comment)
[2021-05-10 04:43] LABS: Anion Gap 20 mmol/L (10-20); BUN (Urea Nitrogen) 98 mg/dL (7.0-18.7); Calc. Creatinine Clearance 28 mL/min (70-130); Calcium 8.3 mg/dL (7.8-10.44); Carbon Dioxide 26 mmol/L (22-29); Chloride 96 mmol/L (98-107); Glucose 95 mg/dL (70-105); Phosphorus 8.3 mg/dL (2.3-4.7); Potassium 4.6 mmol/L (3.5-5.1); Sodium 137 mmol/L (136-145)
[2021-05-10 05:02] LABS: MDiff Complete? YES
[2021-05-10 05:05] LABS: Platelet Morphology Comment Appears Adequate; Poikilocytosis SLIGHT = 6-15 cells (100X) (0-5/hpf); Polychromasia SLIGHT = 2-3 cells (100X) (0-2/hpf)
[2021-05-10 05:06] LABS: Microcytosis SLIGHT = 6-15 cells (100X) (0-5/hpf)
[2021-05-10 05:12] LABS: Band 2 % (5-11); Lymphocytes 11 % (21-51); Monocytes 17 % (0-10); Neutrophil 70 % (42-75)
[2021-05-10] MEDS: Piperacillin/Tazobactam 3.375 GM in Sodium Chloride 0.9% 100 ML IVPB SCH ×2 (06:28→17:41)
[2021-05-10] MEDS: Sevelamer Carbonate 800 MG TAB PO SCH ×3 (06:29→21:56)
[2021-05-10] MEDS: Dexmedetomidine In 0.9 % NaCl 100 ML IVPB SCH ×3 (06:39→21:56)
[2021-05-10] MEDS: Dexamethasone 20 MG/5 ML VIAL SLOW IVP SCH (08:29)
[2021-05-10] MEDS: Zinc Sulfate 220 MG CAP PO SCH (08:30)
[2021-05-10] MEDS: Docusate Sodium 100 MG/10 ML UDCUP PO SCH (08:30)
[2021-05-10] MEDS: Pantoprazole 40 MG VIAL IVP SCH ×2 (08:30→21:56)
[2021-05-10] MEDS: Polyethylene Glycol 3350 17 GM Packet PER TUBE SCH (08:30)
[2021-05-10] MEDS: Heparin 5,000 UNITS/ML VIAL SC SCH ×3 (08:30→21:56)
[2021-05-10] MEDS: EPOETIN ALFA-EPBX (ESRD) 3,000 UNIT/ML VIAL SC SCH (08:45)
[2021-05-10] MEDS: EPOETIN ALFA-EPBX (ESRD) 2,000 UNIT/ML VIAL SC SCH (08:46)
[2021-05-10] MEDS: Heparin 10,000 UNITS/ 10 ML VIAL SLOW IVP SCH (08:47)
[2021-05-10 09:51] LABS: Actual Bicarbonate (HCO3a) 26.9 mEq/L (22-28); Base Excess (BEa) 2.4 mEq/L (-2.0 to +3.0); CO2 Tension 41.2 mmHg (35.0-45.0); Calcium, Ionized (arterial) 1.12 mmol/L (1.12-1.30); Carboxyhemoglobin (COHb) 0.4 gm% (0.0-3.0); Hemoglobin (Hb) 8.7 g/dL (12.0-16.0); O2 Tension (PaO2), arterial 73.3 mmHg (80.0-100.0); Puncture Site LRA; pH, Arterial 7.43 (7.35-7.45)
[2021-05-10] MEDS ORDERED: Vancomycin HCl 750 MG in Sodium Chloride 0.9% 250 ML 250 ML IVPB SCH (11:30)
[2021-05-10] MEDS: Lorazepam 2 MG/ML VIAL SLOW IVP PRN (23:46)
[2021-05-11] MEDS ORDERED: Midazolam HCl 2 mg/2 ml Vial IVP PRN (01:06)
[2021-05-11] MEDS: Morphine 2 MG/ML VIAL SLOW IVP PRN (02:00)
[2021-05-11] MEDS: Lorazepam 2 MG/ML VIAL SLOW IVP PRN (02:00)
[2021-05-11 04:34] LABS: Hemoglobin 7.6 g/dL (12.0-15.5); Mean Corpuscular HGB CONC 31.8 g/dL (32.0-36.0); Mean Corpuscular Hemoglobin 29.8 pg (27.0-33.0); Mean Corpuscular Volume 93.7 fl (81.6-98.3); Mean Platelet Volume 10.7 fl (7.4-10.4); Platelet Count 220 10x3/uL (150-450); RBC Distribution Width 16.4 % (11.5-14.5); Red Blood Cell (RBC) Count 2.55 10x6/uL (3.90-5.03); White Blood Cell (WBC) Count 21.2 10x3/uL (3.5-10.5)
[2021-05-11 04:48] LABS: Anion Gap 19 mmol/L (10-20); BUN (Urea Nitrogen) 91 mg/dL (7.0-18.7); Calc. Creatinine Clearance 30 mL/min (70-130); Calcium 8.7 mg/dL (7.8-10.44); Carbon Dioxide 25 mmol/L (22-29); Chloride 100 mmol/L (98-107); Glucose 107 mg/dL (70-105); Potassium 4.1 mmol/L (3.5-5.1); Sodium 140 mmol/L (136-145); Vancomycin, Random 14.6 ug/mL (See Comment)
[2021-05-11 05:28] LABS: MDiff Complete? YES
[2021-05-11 05:47] LABS: Band 7 % (5-11); Lymphocytes 16 % (21-51); Neutrophil 73 % (42-75)
[2021-05-11 05:48] LABS: Monocytes 4 % (0-10)
[2021-05-11 05:49] LABS: Platelet Morphology Comment Appears Adequate; RBC Morphology Normal
[2021-05-11] MEDS: Piperacillin/Tazobactam 3.375 GM in Sodium Chloride 0.9% 100 ML IVPB SCH ×2 (05:50→17:56)
[2021-05-11] MEDS: Sevelamer Carbonate 800 MG TAB PO SCH ×3 (05:50→21:04)
[2021-05-11] MEDS ORDERED: Albumin 25% 25 GM/100 ML BOT IVPB SCH ×2 (07:15)
[2021-05-11 08:11] LABS: Actual Bicarbonate (HCO3a) 26.5 mEq/L (22-28); Base Excess (BEa) 2.1 mEq/L (-2.0 to +3.0); CO2 Tension 40.3 mmHg (35.0-45.0); Carboxyhemoglobin (COHb) 0.2 gm% (0.0-3.0); Hemoglobin (Hb) 7.8 g/dL (12.0-16.0); O2 Tension (PaO2), arterial 82.8 mmHg (80.0-100.0); Potassium - ABG Lab 4.1 mmol/L (3.70-5.30); Puncture Site LRA; pH, Arterial 7.44 (7.35-7.45)
[2021-05-11 08:14] LABS: ALV-art Gradient 152.025 mmHg (0-20)
[2021-05-11] MEDS: Dexamethasone 20 MG/5 ML VIAL SLOW IVP SCH (08:22)
[2021-05-11] MEDS: Zinc Sulfate 220 MG CAP PO SCH (08:22)
[2021-05-11] MEDS: Heparin 5,000 UNITS/ML VIAL SC SCH ×3 (08:22→21:04)
[2021-05-11] MEDS: Polyethylene Glycol 3350 17 GM Packet PER TUBE SCH (08:23)
[2021-05-11] MEDS: Pantoprazole 40 MG VIAL IVP SCH ×2 (08:23→21:04)
[2021-05-11] MEDS: Docusate Sodium 100 MG/10 ML UDCUP PO SCH (08:23)
[2021-05-11] MEDS: fentaNYL Citrate-0.9 % NaCl/PF 100 ML IVPB SCH (09:13)
[2021-05-11] MEDS ORDERED: Vancomycin HCl 1 GM in Sodium Chloride 0.9% 250 ML 250 ML IVPB SCH (11:00)
[2021-05-11] MEDS: Dexmedetomidine In 0.9 % NaCl 100 ML IVPB SCH ×4 (11:11→23:10)
[2021-05-11] MEDS: HYDROcodone/Acetaminophen 10/325 mg Tablet PO PRN (23:06)
[2021-05-12] MEDS: Dexmedetomidine In 0.9 % NaCl 100 ML IVPB SCH ×5 (04:20→23:09)
[2021-05-12 05:11] LABS: Hemoglobin 6.7 g/dL (12.0-15.5); Mean Corpuscular HGB CONC 31.3 g/dL (32.0-36.0); Mean Corpuscular Hemoglobin 29.4 pg (27.0-33.0); Mean Corpuscular Volume 93.9 fl (81.6-98.3); Mean Platelet Volume 10.9 fl (7.4-10.4); Platelet Count 209 10x3/uL (150-450); RBC Distribution Width 16.4 % (11.5-14.5); Red Blood Cell (RBC) Count 2.28 10x6/uL (3.90-5.03); White Blood Cell (WBC) Count 18.4 10x3/uL (3.5-10.5)
[2021-05-12 05:17] LABS: Anion Gap 20 mmol/L (10-20); BUN (Urea Nitrogen) 80 mg/dL (7.0-18.7); Calc. Creatinine Clearance 33 mL/min (70-130); Carbon Dioxide 24 mmol/L (22-29); Chloride 100 mmol/L (98-107); Glucose 99 mg/dL (70-105); Phosphorus 5.4 mg/dL (2.3-4.7); Potassium 3.8 mmol/L (3.5-5.1); Sodium 140 mmol/L (136-145); Vancomycin, Random 16.2 ug/mL (See Comment)
[2021-05-12 05:55] LABS: MDiff Complete? YES
[2021-05-12 05:57] LABS: Platelet Morphology Comment Appears Adequate
[2021-05-12 05:58] LABS: Macrocytosis SLIGHT = 6-15 cells (100X) (0-5/hpf); Microcytosis SLIGHT = 6-15 cells (100X) (0-5/hpf); Poikilocytosis MODERATE=16-30 cells (100X) (0-5/hpf)
[2021-05-12 06:00] LABS: Band 5 % (5-11); Lymphocytes 8 % (21-51); Monocytes 6 % (0-10); Neutrophil 81 % (42-75); Nucleated RBC 2 % (0)
[2021-05-12] MEDS: Sevelamer Carbonate 800 MG TAB PO SCH ×3 (06:22→20:07)
[2021-05-12] MEDS: Piperacillin/Tazobactam 3.375 GM in Sodium Chloride 0.9% 100 ML IVPB SCH ×2 (06:22→17:34)
[2021-05-12] MEDS: HYDROcodone/Acetaminophen 10/325 mg Tablet PO PRN (06:23)
[2021-05-12 07:43] LABS: Actual Bicarbonate (HCO3a) 26.8 mEq/L (22-28); Base Excess (BEa) 2.1 mEq/L (-2.0 to +3.0); CO2 Tension 41.9 mmHg (35.0-45.0); Calcium, Ionized (arterial) 1.11 mmol/L (1.12-1.30); Carboxyhemoglobin (COHb) 0.9 gm% (0.0-3.0); Hemoglobin (Hb) 6.9 g/dL (12.0-16.0); O2 Tension (PaO2), arterial 89.4 mmHg (80.0-100.0); Potassium - ABG Lab 3.5 mmol/L (3.70-5.30); Puncture Site RRA; pH, Arterial 7.42 (7.35-7.45)
[2021-05-12 07:44] LABS: ALV-art Gradient 72.125 mmHg (0-20)
[2021-05-12] MEDS: Dexamethasone 20 MG/5 ML VIAL SLOW IVP SCH (09:32)
[2021-05-12] MEDS: Heparin 5,000 UNITS/ML VIAL SC SCH ×2 (09:32→16:04)
[2021-05-12] MEDS: Polyethylene Glycol 3350 17 GM Packet PER TUBE SCH (09:33)
[2021-05-12] MEDS: Zinc Sulfate 220 MG CAP PO SCH (09:33)
[2021-05-12] MEDS: Pantoprazole 40 MG VIAL IVP SCH ×2 (09:33→20:07)
[2021-05-12] MEDS: Docusate Sodium 100 MG/10 ML UDCUP PO SCH (09:33)
[2021-05-12] MEDS: Ergocalciferol 1.25 MG(50,000 UNITS) CAP PO SCH (09:35)
[2021-05-12 10:19] LABS: Hemoglobin 6.3 g/dL (12.0-15.5); Mean Corpuscular HGB CONC 31.8 g/dL (32.0-36.0); Mean Corpuscular Hemoglobin 30.6 pg (27.0-33.0); Mean Corpuscular Volume 96.1 fl (81.6-98.3); Mean Platelet Volume 10.4 fl (7.4-10.4); Platelet Count 176 10x3/uL (150-450); RBC Distribution Width 16.1 % (11.5-14.5); Red Blood Cell (RBC) Count 2.06 10x6/uL (3.90-5.03); White Blood Cell (WBC) Count 15.7 10x3/uL (3.5-10.5)
[2021-05-12] MEDS: Famotidine/PF 20 mg/2ml Vial SLOW IVP SCH (20:06)
[2021-05-13 00:19] LABS: Hemoglobin 7.2 g/dL (12.0-15.5)
[2021-05-13] MEDS: Dexmedetomidine In 0.9 % NaCl 100 ML IVPB SCH ×2 (03:57→10:49)
[2021-05-13 04:15] LABS: Vancomycin, Random 15.2 ug/mL (See Comment)
[2021-05-13 04:31] LABS: Phosphorus 8.3 mg/dL (2.3-4.7)
[2021-05-13] MEDS: Sevelamer Carbonate 800 MG TAB PO SCH ×3 (05:03→20:23)
[2021-05-13] MEDS: Piperacillin/Tazobactam 3.375 GM in Sodium Chloride 0.9% 100 ML IVPB SCH ×2 (05:03→18:02)
[2021-05-13 05:27] LABS: Hemoglobin 7.4 g/dL (12.0-15.5); Mean Corpuscular HGB CONC 32.3 g/dL (32.0-36.0); Mean Corpuscular Hemoglobin 29.8 pg (27.0-33.0); Mean Corpuscular Volume 92.3 fl (81.6-98.3); Platelet Count 180 10x3/uL (150-450); Red Blood Cell (RBC) Count 2.48 10x6/uL (3.90-5.03)
[2021-05-13 05:31] LABS: ALT (SGPT) 6 U/L (8-55); AST (SGOT) 27 U/L (5-34); Alkaline Phosphatase 44 U/L (40-110); Anion Gap 21 mmol/L (10-20); BUN (Urea Nitrogen) 123 mg/dL (7.0-18.7); Bilirubin, Total 0.6 mg/dL (0.2-1.2); Calc. Creatinine Clearance 22 mL/min (70-130); Calcium 9.4 mg/dL (7.8-10.44); Carbon Dioxide 21 mmol/L (22-29); Chloride 98 mmol/L (98-107); Globulin 2.7 g/dL (2.4-3.5); Glucose 101 mg/dL (70-105); Potassium 4.2 mmol/L (3.5-5.1); Protein, Total 5.7 g/dL (6.0-8.3); Sodium 136 mmol/L (136-145)
[2021-05-13 05:42] LABS: MDiff Complete? YES
[2021-05-13 05:44] LABS: Lymphocytes 1 % (21-51); Monocytes 9 % (0-10); Myelocyte 1 % (0-0); Neutrophil 89 % (42-75)
[2021-05-13] MEDS: Morphine 2 MG/ML VIAL SLOW IVP PRN ×2 (05:52→18:01)
[2021-05-13] MEDS ORDERED: Vancomycin HCl 750 MG in Sodium Chloride 0.9% 250 ML 250 ML IVPB SCH ×3 (08:45→15:30)
[2021-05-13] MEDS: Docusate Sodium 100 MG/10 ML UDCUP PO SCH (08:54)
[2021-05-13] MEDS: Dexamethasone 20 MG/5 ML VIAL SLOW IVP SCH (08:54)
[2021-05-13] MEDS: Famotidine/PF 20 mg/2ml Vial SLOW IVP SCH ×2 (08:54→20:22)
[2021-05-13] MEDS: Polyethylene Glycol 3350 17 GM Packet PER TUBE SCH (08:55)
[2021-05-13] MEDS: Zinc Sulfate 220 MG CAP PO SCH (08:55)
[2021-05-13] MEDS: Pantoprazole 40 MG VIAL IVP SCH ×2 (08:55→20:22)
[2021-05-13] MEDS: EPOETIN ALFA-EPBX (ESRD) 3,000 UNIT/ML VIAL SC SCH (09:03)
[2021-05-13] MEDS: EPOETIN ALFA-EPBX (ESRD) 2,000 UNIT/ML VIAL SC SCH (09:03)
[2021-05-13 10:45] LABS: ALV-art Gradient 70.575 mmHg (0-20); Actual Bicarbonate (HCO3a) 23.8 mEq/L (22-28); Base Excess (BEa) -0.3 mEq/L (-2.0 to +3.0); CO2 Tension 36.5 mmHg (35.0-45.0); Calcium, Ionized (arterial) 1.11 mmol/L (1.12-1.30); Carboxyhemoglobin (COHb) 1.2 gm% (0.0-3.0); Critical Notified Whom: TELEMED /RN; Hemoglobin (Hb) 7.7 g/dL (12.0-16.0); O2 Tension (PaO2), arterial 97.7 mmHg (80.0-100.0); Potassium - ABG Lab 3.9 mmol/L (3.70-5.30); Puncture Site RRA; pH, Arterial 7.43 (7.35-7.45)
[2021-05-14 03:51] LABS: #Eosinphils 0.1 10x3/uL (0.0-0.5); #Monocytes 1.2 10x3/uL (0.0-1.1); #Neutrophils 10.1 10x3/uL (1.5-8.4); %Basophils 0.2 % (0.0-2.0); %Eosinophils 0.5 % (0.0-6.0); %Lymphocytes 8.1 % (18.0-47.0); %Neutrophils 77.7 % (40.0-75.0); Hemoglobin 7.3 g/dL (12.0-15.5); Mean Corpuscular HGB CONC 32.2 g/dL (32.0-36.0); Mean Corpuscular Hemoglobin 29.7 pg (27.0-33.0); Mean Corpuscular Volume 92.3 fl (81.6-98.3); Mean Platelet Volume 10.9 fl (7.4-10.4); Platelet Count 181 10x3/uL (150-450); RBC Distribution Width 16.2 % (11.5-14.5); Red Blood Cell (RBC) Count 2.46 10x6/uL (3.90-5.03)
[2021-05-14 04:09] LABS: Vancomycin, Random 22.6 ug/mL (See Comment)
[2021-05-14 04:46] LABS: Anion Gap 19 mmol/L (10-20); BUN (Urea Nitrogen) 80 mg/dL (7.0-18.7); Calc. Creatinine Clearance 29 mL/min (70-130); Carbon Dioxide 26 mmol/L (22-29); Chloride 100 mmol/L (98-107); Glucose 87 mg/dL (70-105); Magnesium 2.5 mg/dL (1.6-2.6); Phosphorus 6.1 mg/dL (2.3-4.7); Potassium 3.8 mmol/L (3.5-5.1); Sodium 141 mmol/L (136-145)
[2021-05-14] MEDS: Sevelamer Carbonate 800 MG TAB PO SCH ×3 (05:12→20:06)
[2021-05-14] MEDS: Piperacillin/Tazobactam 3.375 GM in Sodium Chloride 0.9% 100 ML IVPB SCH ×2 (05:12→17:00)
[2021-05-14] MEDS: Famotidine/PF 20 mg/2ml Vial SLOW IVP SCH ×2 (09:05→20:06)
[2021-05-14] MEDS: Zinc Sulfate 220 MG CAP PO SCH (09:15)
[2021-05-14] MEDS: Polyethylene Glycol 3350 17 GM Packet PER TUBE SCH (09:15)
[2021-05-14] MEDS: Dexamethasone 20 MG/5 ML VIAL SLOW IVP SCH (10:17)
[2021-05-14] MEDS: Pantoprazole 40 MG VIAL IVP SCH ×2 (10:18→20:06)
[2021-05-14] MEDS ORDERED: Morphine 4 MG/ML VIAL SLOW IVP PRN (13:00)
[2021-05-14] MEDS: Furosemide 100 MG/10 ML VIAL SLOW IVP SCH ×2 (16:59→17:03)
[2021-05-14] MEDS ORDERED: Fentanyl CADD 100 ML IVPB SCH (18:30)
[2021-05-15 04:17] LABS: Vancomycin, Random 20.6 ug/mL (See Comment)
[2021-05-15 04:27] LABS: Anion Gap 23 mmol/L (10-20); BUN (Urea Nitrogen) 122 mg/dL (7.0-18.7); Calc. Creatinine Clearance 19 mL/min (70-130); Carbon Dioxide 22 mmol/L (22-29); Chloride 100 mmol/L (98-107); Glucose 85 mg/dL (70-105); Phosphorus 8.4 mg/dL (2.3-4.7); Potassium 4.4 mmol/L (3.5-5.1); Sodium 141 mmol/L (136-145)
[2021-05-15] MEDS: Piperacillin/Tazobactam 3.375 GM in Sodium Chloride 0.9% 100 ML IVPB SCH ×2 (06:41→21:12)
[2021-05-15] MEDS ORDERED: Sevelamer Carbonate 800 MG TAB PO SCH (06:45)
[2021-05-15] MEDS: Dexamethasone 20 MG/5 ML VIAL SLOW IVP SCH (09:04)
[2021-05-15] MEDS: EPOETIN ALFA-EPBX (ESRD) 3,000 UNIT/ML VIAL SC SCH (09:05)
[2021-05-15] MEDS: EPOETIN ALFA-EPBX (ESRD) 2,000 UNIT/ML VIAL SC SCH (09:06)
[2021-05-15] MEDS: Polyethylene Glycol 3350 17 GM Packet PER TUBE SCH (09:19)
[2021-05-15] MEDS: Famotidine/PF 20 mg/2ml Vial SLOW IVP SCH ×2 (09:19→21:12)
[2021-05-15] MEDS: Pantoprazole 40 MG VIAL IVP SCH ×2 (09:20→21:13)
[2021-05-15] MEDS ORDERED: Pantoprazole 40 MG VIAL ONE (09:20)
[2021-05-15] MEDS: Zinc Sulfate 220 MG CAP PO SCH (10:11)
[2021-05-15] MEDS: Sevelamer Carbonate 800 MG TAB PO SCH ×2 (14:00→21:12)
[2021-05-16] MEDS: Sevelamer Carbonate 800 MG TAB PO SCH ×3 (05:51→21:44)
[2021-05-16] MEDS: Piperacillin/Tazobactam 3.375 GM in Sodium Chloride 0.9% 100 ML IVPB SCH (05:51)
[2021-05-16 06:54] LABS: Vancomycin, Random 14.5 ug/mL (See Comment)
[2021-05-16 08:26] LABS: Hemoglobin 8.2 g/dL (12.0-15.5); Mean Corpuscular HGB CONC 32.3 g/dL (32.0-36.0); Mean Platelet Volume 11.4 fl (7.4-10.4); Platelet Count 106 10x3/uL (150-450); RBC Distribution Width 16.3 % (11.5-14.5); Red Blood Cell (RBC) Count 2.73 10x6/uL (3.90-5.03); White Blood Cell (WBC) Count 11.3 10x3/uL (3.5-10.5)
[2021-05-16 09:34] LABS: Albumin 3.2 g/dL (3.5-5.0); Anion Gap 22 mmol/L (10-20); BUN (Urea Nitrogen) 77 mg/dL (7.0-18.7); BUN/Creatinine Ratio 13.34; Calc. Creatinine Clearance 24 mL/min (70-130); Calcium 9.4 mg/dL (7.8-10.44); Carbon Dioxide 21 mmol/L (22-29); Chloride 100 mmol/L (98-107); Glucose 80 mg/dL (70-105); Phosphorus 5.8 mg/dL (2.3-4.7); Sodium 139 mmol/L (136-145)
[2021-05-16] MEDS: Famotidine/PF 20 mg/2ml Vial SLOW IVP SCH (11:29)
[2021-05-16] MEDS: Pantoprazole 40 MG VIAL IVP SCH (11:30)
[2021-05-16] MEDS: predniSONE 20 MG TAB PO SCH (11:32)
[2021-05-16] MEDS: Zinc Sulfate 220 MG CAP PO SCH (11:32)
[2021-05-16] MEDS: Polyethylene Glycol 3350 17 GM Packet PER TUBE SCH (11:32)
[2021-05-16] MEDS ORDERED: EPINEPHrine 1 MG/ML AMP ONE (13:45)
[2021-05-16] MEDS ORDERED: Bupivacaine PF 0.5% 30 ML VIAL ONE (13:45)
[2021-05-16 18:07] LABS: Hemoglobin 8.2 g/dL (12.0-15.5); Platelet Count 174 10x3/uL (150-450)
[2021-05-16] MEDS: Famotidine 20 MG TAB PO SCH (21:44)
[2021-05-17 00:25] LABS: Hemoglobin 8.6 g/dL (12.0-15.5); Platelet Count 177 10x3/uL (150-450)
[2021-05-17 05:04] LABS: Hemoglobin 8.7 g/dL (12.0-15.5); Platelet Count 166 10x3/uL (150-450)
[2021-05-17 06:08] LABS: Albumin 3.3 g/dL (3.5-5.0); Anion Gap 23 mmol/L (10-20); BUN (Urea Nitrogen) 98 mg/dL (7.0-18.7); BUN/Creatinine Ratio 12.58; Calc. Creatinine Clearance 18 mL/min (70-130); Calcium 9.5 mg/dL (7.8-10.44); Carbon Dioxide 20 mmol/L (22-29); Chloride 99 mmol/L (98-107); Glucose 70 mg/dL (70-105); Phosphorus 8.5 mg/dL (2.3-4.7); Potassium 4.1 mmol/L (3.5-5.1); Sodium 138 mmol/L (136-145)
[2021-05-17] MEDS: Sevelamer Carbonate 800 MG TAB PO SCH ×3 (06:36→21:16)
[2021-05-17] MEDS: predniSONE 20 MG TAB PO SCH (10:24)
[2021-05-17] MEDS: Famotidine 20 MG TAB PO SCH ×2 (10:24→21:16)
[2021-05-17] MEDS: HYDROcodone/Acetaminophen 10/325 mg Tablet PO PRN (10:42)
[2021-05-17] MEDS: Zinc Sulfate 220 MG CAP PO SCH (10:43)
[2021-05-17] MEDS: EPOETIN ALFA-EPBX (ESRD) 2,000 UNIT/ML VIAL SC SCH (12:48)
[2021-05-17] MEDS: EPOETIN ALFA-EPBX (ESRD) 3,000 UNIT/ML VIAL SC SCH (12:48)
[2021-05-17] MEDS: Polyethylene Glycol 3350 17 GM Packet PER TUBE SCH (13:07)
[2021-05-17] MEDS ORDERED: Activase 2 MG VIAL CATH PRN ×3 (13:27→16:24)
[2021-05-18] MEDS: Sevelamer Carbonate 800 MG TAB PO SCH ×4 (05:52→22:02)
[2021-05-18] MEDS: Zinc Sulfate 220 MG CAP PO SCH (08:25)
[2021-05-18] MEDS: predniSONE 20 MG TAB PO SCH (08:25)
[2021-05-18] MEDS: Famotidine 20 MG TAB PO SCH (08:25)
[2021-05-18] MEDS: Polyethylene Glycol 3350 17 GM Packet PER TUBE SCH (08:25)
[2021-05-18 08:56] LABS: Anion Gap 28 mmol/L (10-20); BUN (Urea Nitrogen) 125 mg/dL (7.0-18.7); BUN/Creatinine Ratio 11.53; Calc. Creatinine Clearance 13 mL/min (70-130); Calcium 9.8 mg/dL (7.8-10.44); Carbon Dioxide 18 mmol/L (22-29); Chloride 99 mmol/L (98-107); Glucose 81 mg/dL (70-105); Phosphorus 10.9 mg/dL (2.3-4.7); Potassium 5.1 mmol/L (3.5-5.1); Sodium 140 mmol/L (136-145)
[2021-05-19 05:51] LABS: Anion Gap 30 mmol/L (10-20); Calc. Creatinine Clearance 10 mL/min (70-130); Calcium 9.8 mg/dL (7.8-10.44); Carbon Dioxide 15 mmol/L (22-29); Chloride 101 mmol/L (98-107); Glucose 72 mg/dL (70-105); Potassium 6.2 mmol/L (3.5-5.1); Sodium 140 mmol/L (136-145)
[2021-05-19 06:03] LABS: BUN (Urea Nitrogen) 136 mg/dL (7.0-18.7); BUN/Creatinine Ratio 10.57
[2021-05-19 06:08] LABS: Phosphorus 11.7 mg/dL (2.3-4.7)
[2021-05-19] MEDS ORDERED: Dextrose 50% Abboject 50 ML SYRINGE SLOW IVP SCH (06:26)
[2021-05-19] MEDS ORDERED: Insulin Regular 300 UNITS/3 ML VIAL IVP SCH (06:26)
[2021-05-19] MEDS ORDERED: Calcium Gluconate 4.6 MEQ in Sodium Chloride 0.9% 100 ML IVPB SCH (06:27)
[2021-05-19] MEDS: Sevelamer Carbonate 800 MG TAB PO SCH ×3 (06:27→22:08)
[2021-05-19] MEDS ORDERED: Sodium Bicarbonate 150 MEQ in Dextrose 5% in Water 1,000 ML IV SCH (06:30)
[2021-05-19] MEDS ORDERED: EPINEPHrine 1 MG/ML AMP ONE (07:25)
[2021-05-19] MEDS ORDERED: Bupivacaine 0.25% HCL 30 ML VIAL ONE (07:25)
[2021-05-19] MEDS: Polyethylene Glycol 3350 17 GM Packet PER TUBE SCH (07:44)
[2021-05-19] MEDS ORDERED: Midazolam HCl 2 mg/2 ml Vial ONE (09:49)
[2021-05-19] MEDS ORDERED: ceFAZolin 2 GM/DEX 5% 100 ML BAG ONE (09:51)
[2021-05-19] MEDS: Famotidine 20 MG TAB PO SCH (18:07)
[2021-05-19] MEDS: predniSONE 20 MG TAB PO SCH (18:07)
[2021-05-19] MEDS: Ergocalciferol 1.25 MG(50,000 UNITS) CAP PO SCH (18:07)
[2021-05-19] MEDS: Zinc Sulfate 220 MG CAP PO SCH (18:08)
[2021-05-20 05:30] LABS: Albumin 2.9 g/dL (3.5-5.0); Anion Gap 21 mmol/L (10-20); BUN (Urea Nitrogen) 57 mg/dL (7.0-18.7); BUN/Creatinine Ratio 8.77; Calc. Creatinine Clearance 20 mL/min (70-130); Calcium 8.1 mg/dL (7.8-10.44); Carbon Dioxide 25 mmol/L (22-29); Chloride 99 mmol/L (98-107); Glucose 84 mg/dL (70-105); Phosphorus 5.5 mg/dL (2.3-4.7); Potassium 4.9 mmol/L (3.5-5.1); Sodium 140 mmol/L (136-145)
[2021-05-20] MEDS: Sevelamer Carbonate 800 MG TAB PO SCH ×3 (06:01→22:44)
[2021-05-20] MEDS: predniSONE 20 MG TAB PO SCH (09:03)
[2021-05-20] MEDS: Famotidine 20 MG TAB PO SCH (09:03)
[2021-05-20] MEDS: EPOETIN ALFA-EPBX (ESRD) 3,000 UNIT/ML VIAL SC SCH (09:04)
[2021-05-20] MEDS: EPOETIN ALFA-EPBX (ESRD) 2,000 UNIT/ML VIAL SC SCH (09:04)
[2021-05-20] MEDS: Polyethylene Glycol 3350 17 GM Packet PER TUBE SCH (09:26)
[2021-05-20] MEDS: Zinc Sulfate 220 MG CAP PO SCH (10:10)
[2021-05-21 05:55] LABS: Hemoglobin 7.4 g/dL (12.0-15.5); Mean Corpuscular HGB CONC 31.4 g/dL (32.0-36.0); Mean Corpuscular Hemoglobin 30.8 pg (27.0-33.0); Mean Corpuscular Volume 98.3 fl (81.6-98.3); Mean Platelet Volume 11.6 fl (7.4-10.4); Platelet Count 155 10x3/uL (150-450); RBC Distribution Width 17.6 % (11.5-14.5); White Blood Cell (WBC) Count 16.5 10x3/uL (3.5-10.5)
[2021-05-21 06:08] LABS: Anion Gap 24 mmol/L (10-20); BUN (Urea Nitrogen) 81 mg/dL (7.0-18.7); BUN/Creatinine Ratio 9.32; Calc. Creatinine Clearance 15 mL/min (70-130); Calcium 8.6 mg/dL (7.8-10.44); Carbon Dioxide 22 mmol/L (22-29); Chloride 99 mmol/L (98-107); Glucose 84 mg/dL (70-105); Phosphorus 5.9 mg/dL (2.3-4.7); Potassium 4.6 mmol/L (3.5-5.1); Sodium 140 mmol/L (136-145)
[2021-05-21] MEDS: Sevelamer Carbonate 800 MG TAB PO SCH ×3 (08:57→18:29)
[2021-05-21] MEDS: Famotidine 20 MG TAB PO SCH (08:58)
[2021-05-21] MEDS: Polyethylene Glycol 3350 17 GM Packet PER TUBE SCH (08:58)
[2021-05-21] MEDS: predniSONE 20 MG TAB PO SCH (08:58)
[2021-05-21] MEDS: Zinc Sulfate 220 MG CAP PO SCH (10:18)
[2021-05-21 10:21] LABS: Iron 37 ug/dL (50-170); Iron Binding Capacity, Total 218 mcg/dL (265-497)
[2021-05-21] MEDS ORDERED: diphenhydrAMINE 25 MG CAP PO SCH (19:00)
[2021-05-22] MEDS ORDERED: diphenhydrAMINE 50 MG/ML VIAL IVP SCH (07:00)
[2021-05-22 08:22] LABS: Anion Gap 23 mmol/L (10-20); BUN (Urea Nitrogen) 95 mg/dL (7.0-18.7); BUN/Creatinine Ratio 9.21; Calc. Creatinine Clearance 13 mL/min (70-130); Carbon Dioxide 22 mmol/L (22-29); Chloride 99 mmol/L (98-107); Glucose 73 mg/dL (70-105); Phosphorus 6.5 mg/dL (2.3-4.7); Potassium 4.9 mmol/L (3.5-5.1); Sodium 139 mmol/L (136-145)
[2021-05-22] MEDS: Sevelamer Carbonate 800 MG TAB PO SCH ×3 (10:40→21:05)
[2021-05-22] MEDS: EPOETIN ALFA-EPBX (ESRD) 3,000 UNIT/ML VIAL SC SCH (14:26)
[2021-05-22] MEDS: Famotidine 20 MG TAB PO SCH (14:27)
[2021-05-22] MEDS: Zinc Sulfate 220 MG CAP PO SCH (14:27)
[2021-05-22] MEDS: EPOETIN ALFA-EPBX (ESRD) 2,000 UNIT/ML VIAL SC SCH (14:27)
[2021-05-22] MEDS: Polyethylene Glycol 3350 17 GM Packet PER TUBE SCH (14:55)
[2021-05-23] MEDS ORDERED: diphenhydrAMINE 25 MG CAP PO SCH (01:00)
[2021-05-23 05:08] LABS: Albumin 2.9 g/dL (3.5-5.0); Anion Gap 24 mmol/L (10-20); BUN (Urea Nitrogen) 42 mg/dL (7.0-18.7); BUN/Creatinine Ratio 6.75; Calc. Creatinine Clearance 21 mL/min (70-130); Carbon Dioxide 18 mmol/L (22-29); Chloride 104 mmol/L (98-107); Glucose 73 mg/dL (70-105); Phosphorus 4.2 mg/dL (2.3-4.7); Potassium 4.6 mmol/L (3.5-5.1); Sodium 141 mmol/L (136-145)
[2021-05-23 06:36] LABS: Bilirubin Neg (Negative); Blood, Urine 50 (Negative); Clarity Cloudy (Clear); Glucose, Urine (Dipstick) Normal (Negative); Ketone, Urine Negative (Negative); Leukocyte Negative (Negative); Nitrite Negative (Negative); Protein, Urine (Dipstick) 100 mg/dl (Neg-Trace); Urobilinogen Normal mg/dL (Less than 2)
[2021-05-23 06:51] LABS: Bacteria/HPF Rare-Few HPF (None Seen); Renal Epithelial 0-3 HPF (None Seen); Transitional Epithelial 0-3 HPF (None Seen); Urine Culture Reflex No No; WBC/HPF 21-50 HPF (0-3)
[2021-05-23 07:02] LABS: Creatinine, Urine 54.93 mg/dL (47-110)
[2021-05-23 07:20] LABS: Legionella Urinary Ag Negative (Negative); Strep pneumo Urine Ag NEGATIVE (NEGATIVE)
[2021-05-23] MEDS: Sevelamer Carbonate 800 MG TAB PO SCH ×3 (09:06→17:13)
[2021-05-23] MEDS: HYDROcodone/Acetaminophen 10/325 mg Tablet PO PRN (10:02)
[2021-05-23 10:52] LABS: #Basophils 0.1 10x3/uL (0.0-0.2); #Eosinphils 0.8 10x3/uL (0.0-0.5); #Monocytes 0.8 10x3/uL (0.0-1.1); #Neutrophils 14.3 10x3/uL (1.5-8.4); %Basophils 0.3 % (0.0-2.0); %Eosinophils 4.5 % (0.0-6.0); %Lymphocytes 7.8 % (18.0-47.0); %Monocytes 4.7 % (0.0-10.0); %Neutrophils 81.7 % (40.0-75.0); Hemoglobin 8.7 g/dL (12.0-15.5); Mean Corpuscular HGB CONC 30.9 g/dL (32.0-36.0); Mean Corpuscular Hemoglobin 30.5 pg (27.0-33.0); Mean Corpuscular Volume 98.9 fl (81.6-98.3); Platelet Count 184 10x3/uL (150-450); RBC Distribution Width 17.4 % (11.5-14.5); Red Blood Cell (RBC) Count 2.85 10x6/uL (3.90-5.03); White Blood Cell (WBC) Count 17.5 10x3/uL (3.5-10.5)
[2021-05-23] MEDS: Famotidine 20 MG TAB PO SCH (10:57)
[2021-05-23] MEDS: Carvedilol 12.5 MG TAB PO SCH ×2 (10:57→21:44)
[2021-05-23] MEDS: Zinc Sulfate 220 MG CAP PO SCH (10:57)
[2021-05-23] MEDS: Polyethylene Glycol 3350 17 GM Packet PER TUBE SCH (10:57)
[2021-05-23] MEDS: Sodium Bicarbonate Tab 325 MG TAB PO SCH ×3 (10:57→21:44)
[2021-05-23] MEDS ORDERED: Tuberculin PPD 0.1 ML VIAL I-DERMAL SCH ×2 (11:30→18:15)
[2021-05-23] MEDS: cefTRIAXone\\ROCEPHIN 1 GM in Sodium Chloride 0.9% 100 ML IVPB SCH (14:47)
[2021-05-23] MEDS ORDERED: Heparin 10,000 UNITS/ 10 ML VIAL FS SCH (20:15)
[2021-05-24 07:00] LABS: Albumin 2.6 g/dL (3.5-5.0); Anion Gap 21 mmol/L (10-20); BUN (Urea Nitrogen) 60 mg/dL (7.0-18.7); BUN/Creatinine Ratio 7.42; Calc. Creatinine Clearance 16 mL/min (70-130); Calcium 8.5 mg/dL (7.8-10.44); Carbon Dioxide 21 mmol/L (22-29); Chloride 101 mmol/L (98-107); Glucose 76 mg/dL (70-105); Phosphorus 4.8 mg/dL (2.3-4.7); Potassium 6.1 mmol/L (3.5-5.1); Sodium 137 mmol/L (136-145)
[2021-05-24 07:42] LABS: Mean Corpuscular HGB CONC 30.7 g/dL (32.0-36.0); Mean Corpuscular Volume 97.8 fl (81.6-98.3); Mean Platelet Volume 12.4 fl (7.4-10.4); Platelet Count 168 10x3/uL (150-450); RBC Distribution Width 17.2 % (11.5-14.5); Red Blood Cell (RBC) Count 2.67 10x6/uL (3.90-5.03); White Blood Cell (WBC) Count 14.4 10x3/uL (3.5-10.5)
[2021-05-24] MEDS ORDERED: Albuterol Sulfate 2.5 mg/3 ml Neb NEB SCH (08:15)
[2021-05-24] MEDS: Polyethylene Glycol 3350 17 GM Packet PER TUBE SCH ×2 (08:49→09:10)
[2021-05-24] MEDS: EPOETIN ALFA-EPBX (ESRD) 3,000 UNIT/ML VIAL SC SCH (09:08)
[2021-05-24] MEDS: Famotidine 20 MG TAB PO SCH (09:08)
[2021-05-24] MEDS: Carvedilol 12.5 MG TAB PO SCH ×2 (09:08→21:46)
[2021-05-24] MEDS: Sevelamer Carbonate 800 MG TAB PO SCH ×3 (09:08→16:52)
[2021-05-24] MEDS: EPOETIN ALFA-EPBX (ESRD) 2,000 UNIT/ML VIAL SC SCH (09:09)
[2021-05-24] MEDS: Zinc Sulfate 220 MG CAP PO SCH (09:10)
[2021-05-24] MEDS: Sodium Bicarbonate Tab 325 MG TAB PO SCH ×3 (12:14→21:45)
[2021-05-24 12:40] LABS: Potassium 4.6 mmol/L (3.5-5.1)
[2021-05-24] MEDS: cefTRIAXone\\ROCEPHIN 1 GM in Sodium Chloride 0.9% 100 ML IVPB SCH (14:00)
[2021-05-25] MEDS ORDERED: diphenhydrAMINE 25 MG CAP PO SCH (04:15)
[2021-05-25 05:59] LABS: Albumin 2.5 g/dL (3.5-5.0); Anion Gap 18 mmol/L (10-20); BUN (Urea Nitrogen) 26 mg/dL (7.0-18.7); BUN/Creatinine Ratio 6.65; Calc. Creatinine Clearance 34 mL/min (70-130); Calcium 8.2 mg/dL (7.8-10.44); Carbon Dioxide 23 mmol/L (22-29); Chloride 102 mmol/L (98-107); Glucose 76 mg/dL (70-105); Phosphorus 2.7 mg/dL (2.3-4.7); Potassium 4.2 mmol/L (3.5-5.1); Sodium 139 mmol/L (136-145)
[2021-05-25] MEDS: Sodium Chloride 0.9% 1,000 ML IV SCH ×2 (08:48→12:55)
[2021-05-25] MEDS: Zinc Sulfate 220 MG CAP PO SCH (09:41)
[2021-05-25] MEDS: Carvedilol 12.5 MG TAB PO SCH ×2 (09:41→20:36)
[2021-05-25] MEDS: Famotidine 20 MG TAB PO SCH (09:41)
[2021-05-25] MEDS: Sevelamer Carbonate 800 MG TAB PO SCH ×3 (09:41→18:05)
[2021-05-25] MEDS: Sodium Bicarbonate Tab 325 MG TAB PO SCH ×3 (09:42→20:36)
[2021-05-25] MEDS: Polyethylene Glycol 3350 17 GM Packet PER TUBE SCH (09:45)
[2021-05-25] MEDS: cefTRIAXone\\ROCEPHIN 1 GM in Sodium Chloride 0.9% 100 ML IVPB SCH (13:09)
[2021-05-25] MEDS ORDERED: READ PPD TEST SITE PO SCH (18:00)
[2021-05-25] MEDS: HYDROcodone/Acetaminophen 10/325 mg Tablet PO PRN (20:40)
[2021-05-26] MEDS: Sodium Chloride 0.9% 1,000 ML IV SCH ×3 (01:30→21:01)
[2021-05-26 08:25] LABS: #Eosinphils 0.6 10x3/uL (0.0-0.5); #Monocytes 0.6 10x3/uL (0.0-1.1); %Basophils 0.6 % (0.0-2.0); %Eosinophils 9.3 % (0.0-6.0); %Lymphocytes 15.7 % (18.0-47.0); %Neutrophils 60.5 % (40.0-75.0); Hemoglobin 7.4 g/dL (12.0-15.5); Mean Corpuscular HGB CONC 30.2 g/dL (32.0-36.0); Mean Corpuscular Volume 99.2 fl (81.6-98.3); Mean Platelet Volume 11.1 fl (7.4-10.4); Platelet Count 228 10x3/uL (150-450); RBC Distribution Width 16.6 % (11.5-14.5); Red Blood Cell (RBC) Count 2.47 10x6/uL (3.90-5.03); White Blood Cell (WBC) Count 6.6 10x3/uL (3.5-10.5)
[2021-05-26 09:14] LABS: Albumin 2.6 g/dL (3.5-5.0); Anion Gap 18 mmol/L (10-20); BUN (Urea Nitrogen) 39 mg/dL (7.0-18.7); BUN/Creatinine Ratio 6.83; Calc. Creatinine Clearance 23 mL/min (70-130); Calcium 8.1 mg/dL (7.8-10.44); Carbon Dioxide 21 mmol/L (22-29); Chloride 103 mmol/L (98-107); Glucose 74 mg/dL (70-105); Phosphorus 3.5 mg/dL (2.3-4.7); Potassium 4.4 mmol/L (3.5-5.1); Sodium 138 mmol/L (136-145)
[2021-05-26] MEDS: Zinc Sulfate 220 MG CAP PO SCH (09:36)
[2021-05-26] MEDS: Sodium Bicarbonate Tab 325 MG TAB PO SCH ×3 (09:36→21:02)
[2021-05-26] MEDS: Carvedilol 12.5 MG TAB PO SCH ×2 (09:36→21:02)
[2021-05-26] MEDS: Famotidine 20 MG TAB PO SCH (09:36)
[2021-05-26] MEDS: Sevelamer Carbonate 800 MG TAB PO SCH ×3 (09:36→17:31)
[2021-05-26] MEDS: Ergocalciferol 1.25 MG(50,000 UNITS) CAP PO SCH (09:36)
[2021-05-26] MEDS: Polyethylene Glycol 3350 17 GM Packet PER TUBE SCH (09:36)
[2021-05-26] MEDS: cefTRIAXone\\ROCEPHIN 1 GM in Sodium Chloride 0.9% 100 ML IVPB SCH (16:19)
[2021-05-26] MEDS ORDERED: diphenhydrAMINE 25 MG CAP PO SCH (22:30)
[2021-05-27 06:58] LABS: Albumin 2.7 g/dL (3.5-5.0); Anion Gap 18 mmol/L (10-20); BUN (Urea Nitrogen) 52 mg/dL (7.0-18.7); BUN/Creatinine Ratio 7.77; Calc. Creatinine Clearance 22 mL/min (70-130); Calcium 8.1 mg/dL (7.8-10.44); Carbon Dioxide 20 mmol/L (22-29); Chloride 105 mmol/L (98-107); Glucose 78 mg/dL (70-105); Phosphorus 3.1 mg/dL (2.3-4.7); Potassium 4.4 mmol/L (3.5-5.1); Sodium 139 mmol/L (136-145)
[2021-05-27] MEDS: Carvedilol 12.5 MG TAB PO SCH ×2 (09:56→21:22)
[2021-05-27] MEDS: Sevelamer Carbonate 800 MG TAB PO SCH ×3 (09:56→16:55)
[2021-05-27] MEDS: Sodium Chloride 0.9% 1,000 ML IV SCH (09:56)
[2021-05-27] MEDS: Zinc Sulfate 220 MG CAP PO SCH (09:57)
[2021-05-27] MEDS: Famotidine 20 MG TAB PO SCH (09:57)
[2021-05-27] MEDS: Sodium Bicarbonate Tab 325 MG TAB PO SCH ×3 (09:57→21:22)
[2021-05-27] MEDS: Polyethylene Glycol 3350 17 GM Packet PER TUBE SCH (09:57)
[2021-05-27] MEDS: EPOETIN ALFA-EPBX (ESRD) 3,000 UNIT/ML VIAL SC SCH (14:19)
[2021-05-27] MEDS: EPOETIN ALFA-EPBX (ESRD) 2,000 UNIT/ML VIAL SC SCH (14:20)
[2021-05-27] MEDS: cefTRIAXone\\ROCEPHIN 1 GM in Sodium Chloride 0.9% 100 ML IVPB SCH (14:20)
[2021-05-27] MEDS: HYDROcodone/Acetaminophen 10/325 mg Tablet PO PRN (14:22)
[2021-05-28 07:50] LABS: Albumin 2.7 g/dL (3.5-5.0); Anion Gap 16 mmol/L (10-20); BUN (Urea Nitrogen) 24 mg/dL (7.0-18.7); BUN/Creatinine Ratio 5.85; Calc. Creatinine Clearance 34 mL/min (70-130); Calcium 8.1 mg/dL (7.8-10.44); Carbon Dioxide 24 mmol/L (22-29); Chloride 105 mmol/L (98-107); Glucose 80 mg/dL (70-105); Phosphorus 2.8 mg/dL (2.3-4.7); Potassium 4.8 mmol/L (3.5-5.1); Sodium 140 mmol/L (136-145)
[2021-05-28] MEDS: Carvedilol 12.5 MG TAB PO SCH ×2 (08:48→08:53)
[2021-05-28] MEDS: HYDROcodone/Acetaminophen 10/325 mg Tablet PO PRN (08:48)
[2021-05-28] MEDS: Famotidine 20 MG TAB PO SCH ×2 (08:49→08:52)
[2021-05-28] MEDS: Polyethylene Glycol 3350 17 GM Packet PER TUBE SCH ×2 (08:49→08:58)
[2021-05-28] MEDS: Sevelamer Carbonate 800 MG TAB PO SCH ×3 (08:49→17:56)
[2021-05-28] MEDS: Sodium Bicarbonate Tab 325 MG TAB PO SCH ×3 (08:49→21:13)
[2021-05-28] MEDS: Zinc Sulfate 220 MG CAP PO SCH (08:53)
[2021-05-28] MEDS: cefTRIAXone\\ROCEPHIN 1 GM in Sodium Chloride 0.9% 100 ML IVPB SCH (14:21)
[2021-05-29 06:45] LABS: Albumin 2.9 g/dL (3.5-5.0); Anion Gap 17 mmol/L (10-20); BUN (Urea Nitrogen) 35 mg/dL (7.0-18.7); BUN/Creatinine Ratio 6.46; Calc. Creatinine Clearance 26 mL/min (70-130); Calcium 8.3 mg/dL (7.8-10.44); Carbon Dioxide 23 mmol/L (22-29); Chloride 104 mmol/L (98-107); Glucose 89 mg/dL (70-105); Phosphorus 3.5 mg/dL (2.3-4.7); Potassium 5.3 mmol/L (3.5-5.1); Sodium 139 mmol/L (136-145)
[2021-05-29] MEDS: Sevelamer Carbonate 800 MG TAB PO SCH ×3 (07:44→18:33)
[2021-05-29] MEDS: Sodium Bicarbonate Tab 325 MG TAB PO SCH ×3 (07:44→20:18)
[2021-05-29] MEDS: Amlodipine 5 MG TAB PO SCH (12:38)
[2021-05-29] MEDS: Carvedilol 12.5 MG TAB PO SCH ×2 (12:38→20:18)
[2021-05-29] MEDS: Zinc Sulfate 220 MG CAP PO SCH (12:39)
[2021-05-29] MEDS: Polyethylene Glycol 3350 17 GM Packet PER TUBE SCH (12:49)
[2021-05-29] MEDS: EPOETIN ALFA-EPBX (ESRD) 3,000 UNIT/ML VIAL SC SCH (14:31)
[2021-05-29] MEDS: cefTRIAXone\\ROCEPHIN 1 GM in Sodium Chloride 0.9% 100 ML IVPB SCH (14:31)
[2021-05-29] MEDS: EPOETIN ALFA-EPBX (ESRD) 2,000 UNIT/ML VIAL SC SCH (14:31)
[2021-05-30] MEDS ORDERED: Calcium Gluc 4.6 MEQ/10 ML (100 MG/ML) SLOW IVP SCH ×2 (01:30→20:15)
[2021-05-30 05:47] LABS: Anion Gap 19 mmol/L (10-20); BUN (Urea Nitrogen) 19 mg/dL (7.0-18.7); Calc. Creatinine Clearance 38 mL/min (70-130); Calcium 8.4 mg/dL (7.8-10.44); Carbon Dioxide 23 mmol/L (22-29); Chloride 105 mmol/L (98-107); Glucose 91 mg/dL (70-105); Sodium 141 mmol/L (136-145)
[2021-05-30 05:55] LABS: Potassium 5.5 mmol/L (3.5-5.1)
[2021-05-30] MEDS: Polyethylene Glycol 3350 17 GM Packet PER TUBE SCH (07:51)
[2021-05-30] MEDS ORDERED: Albuterol Sulfate 2.5 mg/3 ml Neb NEB SCH ×2 (08:00→20:15)
[2021-05-30] MEDS: Carvedilol 6.25 MG TAB PO SCH ×2 (09:23→17:01)
[2021-05-30] MEDS: Famotidine 20 MG TAB PO SCH (09:23)
[2021-05-30] MEDS: Sodium Bicarbonate Tab 325 MG TAB PO SCH ×3 (09:24→20:43)
[2021-05-30] MEDS: Zinc Sulfate 220 MG CAP PO SCH (09:24)
[2021-05-30] MEDS: Sevelamer Carbonate 800 MG TAB PO SCH ×3 (09:24→17:01)
[2021-05-30] MEDS: Amlodipine 5 MG TAB PO SCH (09:25)
[2021-05-30] MEDS ORDERED: Amlodipine 5 MG TAB PO SCH (16:31)
[2021-05-30] MEDS ORDERED: Gabapentin 300 MG CAP PO PRN (18:03)
[2021-05-30 19:09] LABS: Anion Gap 23 mmol/L (10-20); BUN (Urea Nitrogen) 29 mg/dL (7.0-18.7); Calc. Creatinine Clearance 29 mL/min (70-130); Calcium 8.4 mg/dL (7.8-10.44); Carbon Dioxide 21 mmol/L (22-29); Chloride 105 mmol/L (98-107); Glucose 115 mg/dL (70-105); Sodium 142 mmol/L (136-145)
[2021-05-30 19:13] LABS: Potassium 6.6 mmol/L (3.5-5.1)
[2021-05-30] MEDS ORDERED: Insulin Regular 300 UNITS/3 ML VIAL IVP SCH (20:15)
[2021-05-30] MEDS ORDERED: Dextrose 50% Abboject 50 ML SYRINGE SLOW IVP SCH (20:15)
[2021-05-30] MEDS ORDERED: LOKELMA 10 GM PACKET PO SCH (20:15)
[2021-05-30] MEDS ORDERED: Gabapentin 300 MG CAP PO SCH (21:00)
[2021-05-31] MEDS ORDERED: LOKELMA 10 GM PACKET PO SCH (01:45)
[2021-05-31 04:45] VITALS: TEMP 96
[2021-05-31 04:53] LABS: Anion Gap 16 mmol/L (10-20); BUN (Urea Nitrogen) 31 mg/dL (7.0-18.7); BUN/Creatinine Ratio 6.08; Calc. Creatinine Clearance 27 mL/min (70-130); Calcium 8.6 mg/dL (7.8-10.44); Carbon Dioxide 27 mmol/L (22-29); Chloride 102 mmol/L (98-107); Glucose 77 mg/dL (70-105); Potassium 3.3 mmol/L (3.5-5.1); Sodium 142 mmol/L (136-145)
[2021-05-31 04:57] LABS: Hemoglobin 7.3 g/dL (12.0-15.5); Mean Corpuscular HGB CONC 31.1 g/dL (32.0-36.0); Mean Corpuscular Hemoglobin 30.5 pg (27.0-33.0); Mean Corpuscular Volume 98.3 fl (81.6-98.3); Mean Platelet Volume 10.8 fl (7.4-10.4); Platelet Count 285 10x3/uL (150-450); RBC Distribution Width 17.1 % (11.5-14.5); Red Blood Cell (RBC) Count 2.39 10x6/uL (3.90-5.03); White Blood Cell (WBC) Count 7.4 10x3/uL (3.5-10.5)
[2021-05-31 04:59] LABS: Anion Gap 16 mmol/L (10-20); BUN (Urea Nitrogen) 31 mg/dL (7.0-18.7); Calc. Creatinine Clearance 27 mL/min (70-130); Calcium 8.5 mg/dL (7.8-10.44); Carbon Dioxide 27 mmol/L (22-29); Chloride 102 mmol/L (98-107); Glucose 76 mg/dL (70-105); Potassium 3.6 mmol/L (3.5-5.1); Sodium 141 mmol/L (136-145)
[2021-05-31 05:14] VITALS: BMI 7960.8
[2021-05-31] MEDS ORDERED: EPOETIN ALFA-EPBX (ESRD) 10,000 UNIT/ML VIAL SC SCH (09:00)
[2021-05-31] MEDS ORDERED: Amlodipine 5 MG TAB PO SCH (09:00)
[2021-05-31 09:46] LABS: Hep B Surf Ag Non-Reactive S/CO (NonReactive)
[2021-05-31 09:56] LABS: HBSAg Index 0.17 S/CO (0-0.99)
[2021-05-31] MEDS: Sevelamer Carbonate 800 MG TAB PO SCH ×2 (12:13→13:58)
[2021-05-31] MEDS: Carvedilol 6.25 MG TAB PO SCH (12:13)
[2021-05-31] MEDS: Sodium Bicarbonate Tab 325 MG TAB PO SCH ×2 (12:14→13:58)
[2021-05-31] MEDS: Polyethylene Glycol 3350 17 GM Packet PER TUBE SCH (12:14)
[2021-05-31 12:15] VITALS: BP 154/92
[2021-05-31] MEDS: Zinc Sulfate 220 MG CAP PO SCH (13:58)
[2021-05-31] MEDS: Famotidine 20 MG TAB PO SCH (13:58)
[2021-06-01] MEDS ORDERED: Gabapentin 300 MG CAP PO SCH (09:00)
== END 2021-05-31 14:41 | DRG 870 ==
LOC: SUATTDRO 13:02 → CSHERS 13:02 → CSHICU 17:27 → CSHTELE 05-16 00:42
PROVIDERS: ADMIT Hospitalist; ATTEND Internal Medicine
PROC: 8E0ZXY6 Isolation (ICD-10-PCS; principal; 2021-05-02)
PROC: 5A1955Z Respiratory Ventilation, Greater than 96 Consecutive Hours (ICD-10-PCS; 2021-05-02)
PROC: 3E0333Z Introduction of Anti-inflammatory into Peripheral Vein, Percutaneous Approach (ICD-10-PCS; 2021-05-02)
PROC: 0BH17EZ Insertion of Endotracheal Airway into Trachea, Via Natural or Artificial Opening (ICD-10-PCS; 2021-05-02)
PROC: 0JH63XZ Insertion of Tunneled Vascular Access Device into Chest Subcutaneous Tissue and Fascia, Percutaneous Approach (ICD-10-PCS; 2021-05-04)
PROC: 02HV33Z Insertion of Infusion Device into Superior Vena Cava, Percutaneous Approach (ICD-10-PCS; 2021-05-04)
PROC: B548ZZA Ultrasonography of Superior Vena Cava, Guidance (ICD-10-PCS; 2021-05-04)
PROC: 5A1D70Z Performance of Urinary Filtration, Intermittent, Less than 6 Hours Per Day (ICD-10-PCS; 2021-05-05)
PROC: 30233N1 Transfusion of Nonautologous Red Blood Cells into Peripheral Vein, Percutaneous Approach (ICD-10-PCS; 2021-05-12)
PROC: 0J2TXYZ Change Other Device in Trunk Subcutaneous Tissue and Fascia, External Approach (ICD-10-PCS; 2021-05-19)
DX: A41.89 Other specified sepsis (principal); U07.1 COVID-19; J12.82 Pneumonia due to coronavirus disease 2019; J80 Acute respiratory distress syndrome; I21.A1 Myocardial infarction type 2; N17.0 Acute kidney failure with tubular necrosis; G93.41 Metabolic encephalopathy; N18.6 End stage renal disease; Z68.41 Body mass index [BMI] 40.0-44.9, adult; N17.9 Acute kidney failure, unspecified; E87.2 Acidosis; E87.1 Hypo-osmolality and hyponatremia; M62.82 Rhabdomyolysis; D62 Acute posthemorrhagic anemia; K92.2 Gastrointestinal hemorrhage, unspecified; T81.718A Complication of other artery following a procedure, not elsewhere classified, initial encounter; T82.9XXA Unspecified complication of cardiac and vascular prosthetic device, implant and graft, initial encounter; T82.838A Hemorrhage due to vascular prosthetic devices, implants and grafts, initial encounter; N39.0 Urinary tract infection, site not specified; I72.4 Aneurysm of artery of lower extremity; E66.01 Morbid (severe) obesity due to excess calories; Z98.84 Bariatric surgery status; E86.0 Dehydration; E87.6 Hypokalemia; R73.9 Hyperglycemia, unspecified; R00.1 Bradycardia, unspecified; D63.1 Anemia in chronic kidney disease; E87.5 Hyperkalemia; G62.9 Polyneuropathy, unspecified; E55.9 Vitamin D deficiency, unspecified
CPT/HCPCS: 31500; 36415; 36416; 36430; 36600; 70450; 71045; 74018; 74174; 74176; 76700; 80048; 80053; 80069; 80074; 80202; 81001; 82274; 82306; 82550; 82553; 82570; 82728; 82805; 83540; 83550; 83605; 83735; 83880; 84100; 84145; 84156; 84300; 84443; 84484; 84540; 85014; 85018; 85025; 85027; 85049; 85610; 85730; 86140; 86580; 86706; 86850; 86900; 86901; 87040; 87070; 87077; 87186; 87205; 87340; 87449; 87899; 90935; 93005; 93010; 93306; 93923; 94002; 94003; 94640; 94760; 94799; 96374; C1752; C9113; G0257; J0171; J0610; J0690; J0692; J0696; J1100; J1200; J1642; J1644; J1815; J1940; J2001; J2060; J2250; J2270; J2405; J2543; J2997; J3370; J3490; J7030; J7050; J7070; J7120; J7512; J7611; J7620; P9016; P9047; Q5105; S0020; S0028

== ENCOUNTER 2021-08-22 12:15 | Emergency (ER) | payer MEDICARE ==
[2021-08-22 12:53] LABS: #Basophils 0.1 10x3/uL (0.0-0.2); #Eosinphils 0.3 10x3/uL (0.0-0.5); #Monocytes 0.6 10x3/uL (0.0-1.1); #Neutrophils 6.1 10x3/uL (1.5-8.4); %Basophils 0.8 % (0.0-2.0); %Eosinophils 3.1 % (0.0-6.0); %Lymphocytes 24.6 % (18.0-47.0); %Monocytes 6.7 % (0.0-10.0); %Neutrophils 64.5 % (40.0-75.0); Hemoglobin 13.2 g/dL (12.0-15.5); Mean Corpuscular HGB CONC 32.5 g/dL (32.0-36.0); Mean Corpuscular Hemoglobin 29.1 pg (27.0-33.0); Mean Corpuscular Volume 89.6 fl (81.6-98.3); Mean Platelet Volume 11.7 fl (7.4-10.4); Platelet Count 257 10x3/uL (150-450); RBC Distribution Width 14.1 % (11.5-14.5); Red Blood Cell (RBC) Count 4.53 10x6/uL (3.90-5.03); White Blood Cell (WBC) Count 9.4 10x3/uL (3.5-10.5)
[2021-08-22 13:05] LABS: ALT (SGPT) 13 U/L (8-55); AST (SGOT) 14 U/L (5-34); Alkaline Phosphatase 68 U/L (40-110); Anion Gap 13 mmol/L (10-20); BUN (Urea Nitrogen) 31 mg/dL (7.0-18.7); Bilirubin, Total 0.2 mg/dL (0.2-1.2); Calc. Creatinine Clearance 0 mL/min (70-130); Calcium 9.7 mg/dL (7.8-10.44); Carbon Dioxide 23 mmol/L (22-29); Chloride 108 mmol/L (98-107); Globulin 3.8 g/dL (2.4-3.5); Glucose 101 mg/dL (70-105); Potassium 4.1 mmol/L (3.5-5.1); Protein, Total 7.8 g/dL (6.0-8.3); Sodium 140 mmol/L (136-145)
== END 2021-08-22 14:08 | disposition home or self-care (01) ==
LOC: CSHERS 12:15
DX: I12.9 Hypertensive chronic kidney disease with stage 1 through stage 4 chronic kidney disease, or unspecified chronic kidney disease (principal); N18.9 Chronic kidney disease, unspecified; Z86.16 Personal history of COVID-19; Z99.2 Dependence on renal dialysis
CPT/HCPCS: 80053; 83605; 85025; 93005

== ENCOUNTER 2021-09-05 10:40 | Outpatient (CLI) | payer MEDICARE | END 2021-09-05 10:41 | disposition home or self-care (01) | LOC: CSHMAMMO 10:40 | PROVIDERS: ATTEND Internal Medicine | DX: Z12.31 Encounter for screening mammogram for malignant neoplasm of breast (principal) | CPT/HCPCS: 77063; 77067 ==

== ENCOUNTER 2022-12-11 10:01 | Outpatient (CLI) | payer BC | END 2022-12-11 10:02 | disposition home or self-care (01) | LOC: CSHMAMMO 10:01 | PROVIDERS: ATTEND Internal Medicine | DX: Z12.31 Encounter for screening mammogram for malignant neoplasm of breast (principal) | CPT/HCPCS: 77063; 77067 ==

== ENCOUNTER 2023-07-07 11:07 | Outpatient (CLI) | payer BC | END 2023-07-07 11:08 | disposition home or self-care (01) | LOC: CSHULT 11:07 | PROVIDERS: ATTEND Internal Medicine | DX: L72.9 Follicular cyst of the skin and subcutaneous tissue, unspecified (principal); D17.1 Benign lipomatous neoplasm of skin and subcutaneous tissue of trunk | CPT/HCPCS: 76705 ==